=== PATIENT | female | born 1990 | race Caucasian/White ===

== ENCOUNTER → 2018-06-19 | Outpatient (CLI) | payer BC ==
[2018-06-19 14:45] VITALS: BP 161/77; PULSE 108; RESP 16; TEMP 98.9; BMI 61.8
[2018-06-19 16:20] LABS: HCT 41.5 % (34.0-46.0); HGB 12.7 gm/dL (11.4-16.0); MCH 25.7 pg (25.0-35.0); MCHC 30.5 g/dL (31.0-37.0); MCV 84.1 fL (80.0-100.0); Mean Platelet Volume 6.2; Platelet Count 341 k/uL (150-450); RBC 4.94 m/uL (3.80-5.40); RDW 13.7 % (11.5-15.5); WBC 14.4 k/uL (3.8-10.6)
--- NOTE | 2018-06-19 16:20 | P.HPBAR ---
Bariatric H&P - History & Physicial H&P Date: 06/19/18 History & Physicial: Visit/CC: initial visit Patient initial contact: Initial weight: 173.726 kg Initial weight in pounds: 383.00 Height: 5 ft 6 in Initial BMI: 61.8 Last weight: Current weight: 173.726 kg Current weight in pounds: 383.00 Current BMI: 61.8 [place] body weight (based on NIH guidelines): 58.967 kg Excess body weight loss: 0.0% The patient is a 27 year-old F who presents for Bariatric Assessment. Patient presents today for sleeve gastrectomy presurgical consultation. Her BMI is 62. She has had lifetime problems obesity. The patient has had multiple attempts at weight loss or lifetime. She has been unsuccessful. She has complaints of foot knee and ankle pain due to obesity. She also has issues with snoring due to her super obesity. Past Medical History Past Medical History: No Reported History History of Any Multi-Drug Resistant Organisms: None Reported Past Surgical History: No Surgical Hx Reported Past Anesthesia/Blood Transfusion Reactions: No Reported Reaction Past Psychological History: No Psychological Hx Reported Smoking Status: Never smoker Past Alcohol Use History: None Reported Past Drug Use History: None Reported Surgical - Exam Vital Signs Temp Pulse Resp BP 98.9 F 108 H 16 161/77 06/19/18 14:42 06/19/18 14:42 06/19/18 14:42 06/19/18 14:42 - General well developed, well nourished, no distress - Eyes PERRL - ENT normal pinna - Neck no masses - Respiratory normal expansion - Cardiovascular Rhythm: regular - Abdomen Abdomen: soft, non tender Bariatric Assessment & Plan Plan: Super morbid obesity with BMI 62. Comorbidities, arthritis and probable sleep apnea. Patient will undergo sleeve gastrectomy once her insurance authorization is complete. She'll be scheduled for EGD. Bariatric Checklist Checklist: Plan: Checklist: EGD: 1. Hiatal hernia: 2. H. Pylori: HgbA1c: Vitamin D: Smoking: Never smoker Primary care physician referral: dr. Espinosa Psychiatry clearance: Cardiology clearance: Sleep study: Diet journal: VTE risk score: VTE risk level: Rehab needs at discharge:
[2018-06-20 00:55] LABS: Hemoglobin A1C 5.5 % (4.0-6.0)
[2018-06-20 03:43] LABS: Albumin 4.5 g/dL (3.80-4.90); Albumin/Globulin Ratio 1.67 (1.60-3.17); Anion Gap 10.3 mmol/L (4.00-12.00); Calcium 9.6 mg/dL (8.7-10.3); Carbon Dioxide 25.7 mmol/L (21.6-31.8); Globulin 2.7 g/dL (1.6-3.3); Potassium 4.3 mmol/L (3.5-5.5); Total Bilirubin 0.3 mg/dL (0.2-1.2); Total Protein 7.2 g/dL (6.2-8.2)
== END ==
LOC: BARWHC3 14:27
PROVIDERS: ATTEND Surgery
DX: Z48.815 Encounter for surgical aftercare following surgery on the digestive system (principal); E66.01 Morbid (severe) obesity due to excess calories; E55.9 Vitamin D deficiency, unspecified; Z68.44 Body mass index [BMI] 60.0-69.9, adult; Z98.84 Bariatric surgery status
CPT/HCPCS: 36415; 80053; 82306; 83036; 84425; 85027; 93005; 99211

== ENCOUNTER 2018-06-30 07:33 | Day surgery (SDC) | payer BC ==
[2018-06-28 12:48] VITALS: BMI 60.0
[~2018-06-30 07:33] MED LIST: LACTATED RINGERS 1,000 ML IV SCH; LIDOCAINE 1% 20 ML VIAL (10MG/ML) FOR IV START INTRADERMA PRN
[2018-06-30] MEDS ORDERED: LACTATED RINGERS 1,000 ML IV ONE (08:03)
[2018-06-30 08:04] VITALS: RESP 18; TEMP 98.3
[2018-06-30] MEDS ORDERED: LIDOCAINE 1% INJ 10MG/ML (20 ML MDV) ONE (09:16)
[2018-06-30] MEDS ORDERED: PROPOFOL 10 MG/ML 20 ML VIAL IV ONE (09:16)
--- NOTE | 2018-06-30 09:18 | P.GSHP ---
History of Present Illness H&P Date: 06/30/18 Chief Complaint: Morbid obesity, BMI 60 This is a 27-year-old female who presents today for EGD. Patient is undergoing workup for sleeve gastrectomy. Her BMI 60. She's had complaints of some dysphagia and GERD. Past Medical History Past Medical History: No Reported History History of Any Multi-Drug Resistant Organisms: None Reported Past Surgical History: No Surgical Hx Reported Past Anesthesia/Blood Transfusion Reactions: No Reported Reaction Smoking Status: Never smoker - Past Family History Mother Family Medical History: No Reported History Medications and Allergies Home Medications Medication Instructions Recorded Confirmed Type Ergocalciferol (Vitamin D2) 50,000 unit PO TUFR 06/28/18 06/28/18 History [Vitamin D2] Allergies Allergy/AdvReac Type Severity Reaction Status Date / Time No Known Allergies Allergy Verified 06/28/18 12:44 Surgical - Exam Vital Signs Temp Pulse Resp BP Pulse Ox 98.3 F 80 18 104/69 97 06/30/18 08:02 06/30/18 08:02 06/30/18 08:02 06/30/18 08:02 06/30/18 08:02 BMI 60 - General well developed, well nourished, no distress - Eyes PERRL - ENT normal pinna - Neck no masses - Respiratory normal expansion - Cardiovascular Rhythm: regular - Abdomen Abdomen: soft, non tender
--- NOTE | 2018-06-30 09:25 | P.OP ---
Date of Procedure: 06/30/18 Preoperative Diagnosis: Morbid obesity, BMI 68 GERD Postoperative Diagnosis: Morbid obesity, BMI 60 Mild antral gastritis Procedure(s) Performed: EGD Anesthesia: MAC Surgeon: Patric Newby Pathology: other (Antrum) Condition: stable Disposition: PACU Description of Procedure: The patient's placed on the endoscopy table in the lateral position. She received IV sedation. The gastroscope placed oropharynx passed in the esophagus and into the stomach. Scope was then placed through the pylorus. The first and second portion of the duodenum appeared normal. Scope then brought back the antrum and this appeared mildly inflamed. A biopsies performed. The scope was then retroflexed and the remainder some appeared normal. There is no evidence of a hiatal hernia. The GE junction was at 40 cm. The distal esophagus appeared normal. The proximal esophagus appeared normal. The scope was withdra wn for patient.
[2018-06-30 09:45] VITALS: BP 135/77; PULSE 68
== END 2018-06-30 10:03 | disposition home or self-care (01) ==
LOC: ORWHC2ENDO 07:33
PROVIDERS: ATTEND Surgery
DX: K29.50 Unspecified chronic gastritis without bleeding (principal); K21.9 Gastro-esophageal reflux disease without esophagitis; R13.10 Dysphagia, unspecified; E66.01 Morbid (severe) obesity due to excess calories; Z01.818 Encounter for other preprocedural examination; Z68.44 Body mass index [BMI] 60.0-69.9, adult
CPT/HCPCS: 81025; 88305; 84703; 43239; J2001; J2704

== ENCOUNTER → 2018-07-31 | Outpatient (CLI) | payer BC ==
[2018-07-31 16:14] VITALS: BP 169/96; PULSE 72; RESP 16; TEMP 99; BMI 61.6
--- NOTE | 2018-08-01 09:47 | P.HPBAR ---
Bariatric H&P - History & Physicial H&P Date: 07/31/18 History & Physicial: Visit/CC: working on criteria Patient initial contact: Initial weight: 173.726 kg Initial weight in pounds: 383.00 Height: 5 ft 6 in Initial BMI: 61.8 Last weight: Current weight: 173.272 kg Current weight in pounds: 382.00 Current BMI: 61.6 [place] body weight (based on NIH guidelines): 58.967 kg Excess body weight loss: 0.3% The patient is a 28 year-old F who presents for Bariatric Assessment. Patient resents today for presurgical consultation. She is currently working on her insurance authorization. She is morbidly obese with a BMI of 62. Past Medical History Past Medical History: No Reported History History of Any Multi-Drug Resistant Organisms: None Reported Past Surgical History: No Surgical Hx Reported Past Anesthesia/Blood Transfusion Reactions: No Reported Reaction Past Psychological History: No Psychological Hx Reported Smoking Status: Never smoker Past Alcohol Use History: None Reported Past Drug Use History: None Reported - Past Family History Mother Family Medical History: No Reported History Surgical - Exam Vital Signs Temp Pulse Resp BP 99 F 72 16 169/96 07/31/18 16:11 07/31/18 16:11 07/31/18 16:11 07/31/18 16:11 - General well developed, well nourished, no distress - Eyes PERRL - ENT normal pinna - Neck no masses - Respiratory normal expansion - Abdomen Abdomen: soft, non tender Bariatric Assessment & Plan Plan: RBC, BMI 62. Patient will undergo sleeve gastrectomy once her insurance authorization is complete. We went over the risks and benefits of sleeve gastrectomy. We discussed the possibility of gastric staple line disruption, bleeding scarring. Patient has a good understanding of the sleeve gastrectomy. Bariatric Checklist Checklist: Plan: Checklist: EGD: 1. Hiatal hernia: 2. H. Pylori: HgbA1c: Vitamin D: Smoking: Never smoker Primary care physician referral: dr. Espinosa Psychiatry clearance: Cardiology clearance: Sleep study: Diet journal: VTE risk score: VTE risk level: Rehab needs at discharge:
== END | disposition home or self-care (01) ==
LOC: BARWHC3 14:57
PROVIDERS: ATTEND Surgery
DX: E66.01 Morbid (severe) obesity due to excess calories (principal); Z68.44 Body mass index [BMI] 60.0-69.9, adult
CPT/HCPCS: 99211

== ENCOUNTER → 2018-08-21 | Outpatient (CLI) | payer BC ==
[2018-08-21 14:10] VITALS: BMI 63.3
== END ==
LOC: BARWHC3 08:48
PROVIDERS: ATTEND Surgery
DX: E66.01 Morbid (severe) obesity due to excess calories (principal); Z68.44 Body mass index [BMI] 60.0-69.9, adult
CPT/HCPCS: 97804

== ENCOUNTER → 2018-09-11 | Outpatient (CLI) | payer BC ==
[2018-09-11 15:49] LABS: Basophils % (A) 0 %; Eosinophils # (A) 0.2 k/uL (0-0.7); Eosinophils % (A) 1 %; HCT 39.9 % (34.0-46.0); HGB 12.5 gm/dL (11.4-16.0); Lymphocytes # (A) 2.6 k/uL (1.0-4.8); Lymphocytes % (A) 20 %; MCH 25.7 pg (25.0-35.0); MCHC 31.4 g/dL (31.0-37.0); Mean Platelet Volume 6.7; Monocytes # (A) 0.7 k/uL (0-1.0); Monocytes % (A) 5 %; Neutrophils # (A) 9.6 k/uL (1.3-7.7); Neutrophils % (A) 72 %; Platelet Count 344 k/uL (150-450); RBC 4.87 m/uL (3.80-5.40); RDW 13.8 % (11.5-15.5); WBC 13.3 k/uL (3.8-10.6)
[2018-09-11 15:51] LABS: Prothrombin Time 10.7 sec (9.0-12.0)
[2018-09-11 15:54] LABS: ALT 24 U/L (9-52); AST 34 U/L (14-36); African American GFR (CKD) >90 (>60 ml/min/1.73 sqM); Albumin 4.5 g/dL (3.5-5.0); Alkaline Phosphatase 73 U/L (38-126); Anion Gap 11 mmol/L; Blood Urea Nitrogen 12 mg/dL (7-17); Calcium 9.5 mg/dL (8.4-10.2); Carbon Dioxide 22 mmol/L (22-30); Chloride 105 mmol/L (98-107); Glucose 79 mg/dL (74-99); Potassium 4.8 mmol/L (3.5-5.1); Sodium 138 mmol/L (137-145); Total Bilirubin 0.6 mg/dL (0.2-1.3); Total Protein 8.2 g/dL (6.3-8.2)
== END ==
LOC: LABPAT 15:01
PROVIDERS: ATTEND Surgery
DX: Z01.812 Encounter for preprocedural laboratory examination (principal)
CPT/HCPCS: 36415; 80053; 85025; 85610

== ENCOUNTER → 2018-09-11 | Outpatient (CLI) | payer BC ==
[2018-09-11 14:44] VITALS: BP 148/95; PULSE 100; RESP 18; TEMP 98.2; BMI 62.0
--- NOTE | 2018-09-18 14:28 | P.HPBAR ---
Bariatric H&P - History & Physicial H&P Date: 09/11/18 History & Physicial: Visit/CC: surgery consent Patient initial contact: Initial weight: 173.726 kg Initial weight in pounds: 383.00 Height: 5 ft 6 in Initial BMI: 61.8 Last weight: Current weight: 174.361 kg Current weight in pounds: 384.40 Current BMI: 62.0 [place] body weight (based on NIH guidelines): 58.967 kg Excess body weight loss: The patient is a 28 year-old F who presents for Bariatric Assessment. Patient presents today for presurgical consultation. She is apparent scheduled for laparoscopic sleeve gastrectomy next week. Her BMI is 62. The patient has a good understanding of the sleeve gastrectomy. We went over the risks and benefits of the procedure including conversion to the open procedure and injury to the stomach liver or spleen. She is also aware the risk of gastric stapling disruption or bleeding. Past Medical History Past Medical History: No Reported History History of Any Multi-Drug Resistant Organisms: None Reported Past Surgical History: No Surgical Hx Reported Past Anesthesia/Blood Transfusion Reactions: No Reported Reaction Past Psychological History: No Psychological Hx Reported Smoking Status: Never smoker Past Alcohol Use History: None Reported Past Drug Use History: None Reported - Past Family History Mother Family Medical History: No Reported History Surgical - Exam Vital Signs Temp Pulse Resp BP Pulse Ox 98.2 F 100 18 148/95 99 09/11/18 14:41 09/11/18 14:41 09/11/18 14:41 09/11/18 14:41 09/11/18 14:41 - General well developed, well nourished, no distress - Eyes PERRL - ENT normal pinna - Neck no masses - Respiratory normal expansion - Cardiovascular Rhythm: regular - Abdomen Abdomen: soft, non tender Bariatric Assessment & Plan Plan: Morbid obesity, BMI 62. Patient will undergo laparoscopic sleeve gastrectomy next week. All questions were answered in the office. Bariatric Checklist Checklist: Plan: Checklist: EGD: 1. Hiatal hernia: 2. H. Pylori: HgbA1c: Vitamin D: Smoking: Never smoker Primary care physician referral: dr. Espinosa Psychiatry clearance: Cardiology clearance: Sleep study: Diet journal: VTE risk score: VTE risk level: Rehab needs at discharge:
== END | disposition home or self-care (01) ==
LOC: BARWHC3 14:35
PROVIDERS: ATTEND Surgery
DX: E66.01 Morbid (severe) obesity due to excess calories (principal); Z68.44 Body mass index [BMI] 60.0-69.9, adult
CPT/HCPCS: 99211

== ENCOUNTER 2018-09-18 07:36 | Inpatient (IN) | payer BC ==
[~2018-09-18 07:36] MED LIST changes: +DEXAMETHASONE SOD PHOSPHATE 10 MG/ML 1 ML VIAL IV ONE; -LACTATED RINGERS 1,000 ML IV SCH; -LIDOCAINE 1% 20 ML VIAL (10MG/ML) FOR IV START INTRADERMA PRN; +MIDAZOLAM 2 MG/2 ML VIAL IV PRN; +ONDANSETRON 4 MG/2 ML VIAL IVP ONE; +SCOPOLAMINE 1.5MG/72HR PATCH TRANSDERM ONE
[2018-09-18] MEDS ORDERED: LACTATED RINGERS 1,000 ML IV ONE ×2 (08:15→10:17)
[2018-09-18] MEDS ORDERED: LIDOCAINE 1% 20 ML VIAL (10MG/ML) FOR IV START INTRADERMA ONE (08:16)
[2018-09-18] MEDS ORDERED: ceFAZolin IN SWFI 2 GM/20 ML SYRINGE IVP ONE (08:39)
[2018-09-18] MEDS ORDERED: ENOXAPARIN 40 MG/0.4 ML SYRINGE SQ STA (08:39)
[2018-09-18] MEDS ORDERED: MIDAZOLAM (PF) 2 MG/2 ML VIAL IVP ONE (08:46)
--- NOTE | 2018-09-18 08:46 | P.GSHP ---
History of Present Illness H&P Date: 09/18/18 Chief Complaint: Morbid obesity, BMI 61 This is a 28-year-old female who presents today for laparoscopic sleeve gastrectomy. Patient is morbidly obese. Her BMI 61. Patient is aware the risks surgery including conversion to the open procedure and injury to the stomach liver or spleen. She is also aware the risk of staple line disruption, bleeding or scarring. Past Medical History Past Medical History: No Reported History History of Any Multi-Drug Resistant Organisms: None Reported Past Surgical History: No Surgical Hx Reported Past Anesthesia/Blood Transfusion Reactions: No Reported Reaction, Family History of Problems w/ Anesthesia, Motion Sickness Additional Past Anesthesia/Blood Transfusion Reaction / Comment(s): entire family experiences ponv Smoking Status: Never smoker - Past Family History Mother Family Medical History: No Reported History Medications and Allergies Home Medications Medication Instructions Recorded Confirmed Type Ergocalciferol (Vitamin D2) 50,000 unit PO TUFR 06/28/18 09/14/18 History [Vitamin D2] Allergies Allergy/AdvReac Type Severity Reaction Status Date / Time No Known Allergies Allergy Verified 09/14/18 11:21 Surgical - Exam Vital Signs Temp Pulse Resp BP Pulse Ox 97.8 F 86 18 144/61 98 09/18/18 08:01 09/18/18 08:01 09/18/18 08:01 09/18/18 08:01 09/18/18 08:01 Morbid obesity, BMI of 61. - General well developed, well nourished, no distress - Eyes PERRL - ENT normal pinna - Neck no masses - Respiratory normal expansion - Cardiovascular Rhythm: regular - Abdomen Abdomen: soft, non tender Assessment and Plan Plan: Morbid obesity, BMI 61. We'll perform laparoscopic sleeve gastrectomy.
[2018-09-18] MEDS ORDERED: ROCURONIUM BROMIDE 10 MG/ML 10 ML VIAL IV ONE (09:03)
[2018-09-18] MEDS ORDERED: fentaNYL (PF) 50 MCG/ML 2 ML AMP ONE (09:03)
[2018-09-18] MEDS ORDERED: NEOSTIGMINE 1 MG/ML 10 ML VIAL ONE (09:03)
[2018-09-18] MEDS ORDERED: SUCCINYLCHOLINE CHLORIDE 100 MG/5 ML SYR IV ONE (09:03)
[2018-09-18] MEDS ORDERED: ONDANSETRON 4 MG/2 ML VIAL ONE (09:03)
[2018-09-18] MEDS ORDERED: PROPOFOL 10 MG/ML 20 ML VIAL IV ONE (09:03)
[2018-09-18] MEDS ORDERED: GLYCOPYRROLATE 0.2 MG/ML 2 ML VIAL ONE (09:03)
[2018-09-18] MEDS ORDERED: MIDAZOLAM 2 MG/2 ML VIAL ONE (09:03)
[2018-09-18] MEDS ORDERED: LIDOCAINE 1% INJ 10MG/ML (20 ML MDV) ONE (09:03)
[2018-09-18] MEDS ORDERED: BUPIVACAIN-EPI 0.5%-1:200,000 30 ML VIAL SQ ONE (09:46)
[2018-09-18] MEDS ORDERED: HYOSCYAMINE ORAL DROPS 1.875 MG/15 ML BOTTLE PO PRN (10:52)
[2018-09-18] MEDS ORDERED: ONDANSETRON 4 MG/2 ML VIAL IVP PRN (10:52)
[2018-09-18] MEDS ORDERED: diphenhydrAMINE 50 MG/ML 1 ML VIAL IVP PRN (10:52)
[2018-09-18] MEDS ORDERED: NALOXONE 0.4 MG/ML 1 ML VIAL IV PRN (10:52)
--- NOTE | 2018-09-18 10:52 | P.OP ---
Date of Procedure: 09/18/18 Preoperative Diagnosis: Morbid obesity, BMI 62 Postoperative Diagnosis: Morbid obesity, BMI 62 Procedure(s) Performed: Laparoscopic sleeve gastrectomy Anesthesia: NATHAN Surgeon: Patric Newby Estimated Blood Loss (ml): 10 Pathology: other (Gastric remnant) Condition: stable Disposition: PACU Description of Procedure: The patient was placed on the operating room table in the supine position. She received general anesthesia and then was placed in dorsal lithotomy position. Her abdomen was prepped and draped in sterile fashion. The skin incision sites were anesthetized 1% local Xylocaine. And then the skin was incised with an 11 blade in the left lateral position. Using a blade less trocar under direct visualization the peritoneal cavity was entered. The abdomen was insufflated and then a 5 mm laparoscope was placed into the peritoneal cavity. A 5 mm trocar was placed in the right epigastric, and right lateral position. A 15 mm trocar was placed in the supra-umbilical position and another 5 mm trocar was placed in the left lateral position. The left lateral lobe of the liver was retracted. The stomach was visualized. The greater curvature of the stomach was then dissected using the Harmonic scissors. The dissection occurred approximately 5 cm from the pylorus to the level of the left mendy. There was no hiatal hernia seen. At this point a 40-Norwegian bougie dilator was placed the oropharynx and passed into the esophagus and into the stomach by the MONOLOGIST. The sleeve gastrectomy was performed by using the powered echelon stapler with a seam guard buttress material. Sequential firings of the stapler were performed. The gastric remnant was then brought out through the 15 mm trocar site. The dilator was withdrawn. And a orogastric tube was replaced into the stomach. The stomach was insufflated with 200 mL of methylene blue normal saline. There was no evidence of extravasation. The abdomen was irrigated there is no bleeding seen. The Pérez-Michell device was used to close the 15 mm trocar with 0 Vicryl. Skin was closed with interrupted 3-0 Monocryl sutures once the trochars withdrawn. Dermabond dressing was applied. Patient was sent to recovery in stable condition.
[2018-09-18] MEDS ORDERED: PROMETHAZINE INJ 25 MG/ML 1 ML VIAL IVPB ONE (11:07)
[2018-09-18] MEDS: HYDROmorphone 0.5 MG/0.5 ML SYRINGE IVP PRN ×2 (11:16→11:23)
--- NOTE | 2018-09-18 12:23 | P.CONS ---
History of Present Illness - Reason for Consult Consult date: 09/18/18 Medical management Requesting physician: Patric Newby - Chief Complaint Status post sleeve gastrectomy - History of Present Illness This is a 28-year-old female, a patient of [facility]. She has a known past medical history of morbid obesity and vitamin D deficiency. She has a known BMI of 61. She underwent sleeve gastrectomy today for her morbid obesi ty with Dr. Newby. She tolerated the surgery well. locations reported. Patient is complaining of some nausea and epigastric abdominal discomfort. She's also complaining of some lower back pain. She denies any vomiting, chest pain or shortness of breath. She denies any difficulty urinating or any bowel movement changes. She's receiving Zofran and Protonix. Patient's blood pressures have also been elevated. Last blood pressure was 166/84. Review of Systems Please refer to HPI otherwise unremarkable Past Medical History Past Medical History: No Reported History History of Any Multi-Drug Resistant Organisms: None Reported Past Surgical History: No Surgical Hx Reported Past Anesthesia/Blood Transfusion Reactions: No Reported Reaction, Family History of Problems w/ Anesthesia, Motion Sickness Additional Past Anesthesia/Blood Transfusion Reaction / Comm: entire family experiences ponv Smoking Status: Never smoker - Past Family History Mother Family Medical History: No Reported History Medications and Allergies Home Medications Medication Instructions Recorded Confirmed Type Ergocalciferol (Vitamin D2) 50,000 unit PO TUFR 06/28/18 09/18/18 History [Vitamin D2] Allergies Allergy/AdvReac Type Severity Reaction Status Date / Time No Known Allergies Allergy Verified 09/18/18 11:52 Physical Exam Vitals: Vital Signs Temp Pulse Pulse Pulse Resp BP BP 09/18/18 11:54 98.1 F 87 18 166/84 09/18/18 11:35 76 16 158/72 09/18/18 11:20 69 18 157/73 09/18/18 11:05 83 18 159/72 09/18/18 10:50 87 18 166/73 09/18/18 10:35 97.8 F 98 20 170/75 09/18/18 08:01 97.8 F 86 18 144/61 Pulse Ox 09/18/18 11:54 98 09/18/18 11:35 100 09/18/18 11:20 100 06/17/19 11:05 100 09/18/18 10:50 100 09/18/18 10:35 100 09/18/18 08:01 98 Intake and Output 09/17/18 09/18/18 09/18/18 22:59 06:59 14:59 Intake Total 1600 Output Total 10 Balance 1590 Intake: IV 1600 Output: Estimated Blood Loss 10 Head normocephalic Neck supple Lungs clear to auscultation bilaterally no wheezing or crackles Heart regular rate and rhythm S1-S2, no rub or gallop Abdomen is soft nontender distended obese positive bowel sounds no hepatosplenomegaly Extremities no edema Neuro alert and orientated to 3 Assessment and Plan Assessment: 1. Morbid obesity status post sleeve gastrectomy. Patient scheduled for an upper GI. Diet pressure journal service. Continue with current pain management . Continue with the Zofran and Protonix for nausea. 2. Hypertension: Postoperative elevated blood pressures. We'll monitor. Possibly related to pain and nausea. If BP remains elevated will add a ntihypertensive medications. 3. History of vitamin D deficiency GI prophylaxis Protonix and DVT prophylaxis Lovenox Thank you for this consultation. We'll continue to follow along with you. Time with Patient: Greater than 30 (Greater than 50% of the total time spent in counseling and coordination of care.I performed an examination of the patient and discussed their management with the physician Network Strategist. I have reviewed the Physician Network Strategist's notes and agree with the documented findings and plan of care)
[2018-09-18] MEDS: ALBUTEROL NEBULIZED 2.5 MG/3 ML INHALATION SCH ×3 (12:30→20:45)
[2018-09-18] MEDS: LACTATED RINGERS 1,000 ML IV SCH (13:18)
[2018-09-18] MEDS: 0.9% NACL WITH KCL 20 MEQ/L 1,000 ML IV SCH ×2 (14:09→21:47)
[2018-09-18] MEDS: HYDROmorphone 1 MG/ML 1 ML SYRINGE IVP PRN ×4 (15:09→23:45)
[2018-09-18] MEDS ORDERED: ceFAZolin 3 GM in SODIUM CHLORIDE 0.9% 100 ML IVPB SCH (16:00)
[2018-09-18] MEDS: ENOXAPARIN 60 MG/0.6 ML SYRINGE SQ SCH (21:47)
[2018-09-19] MEDS: LACTATED RINGERS 1,000 ML IV SCH (06:07)
[2018-09-19] MEDS: 0.9% NACL WITH KCL 20 MEQ/L 1,000 ML IV SCH (06:07)
[2018-09-19] MEDS: ENOXAPARIN 60 MG/0.6 ML SYRINGE SQ SCH ×2 (06:53→20:38)
[2018-09-19] MEDS: HYDROmorphone 1 MG/ML 1 ML SYRINGE IVP PRN ×2 (06:53→10:32)
[2018-09-19] MEDS: PANTOPRAZOLE 40 MG/10 ML VIAL IV SCH (06:53)
[2018-09-19] MEDS ORDERED: 0.9% NACL WITH KCL 20 MEQ/L 1,000 ML IV SCH (08:00)
[2018-09-19] MEDS: ALBUTEROL NEBULIZED 2.5 MG/3 ML INHALATION SCH ×4 (08:23→19:36)
[2018-09-19 08:27] LABS: Basophils # (A) 0.1 k/uL (0-0.2); Basophils % (A) 1 %; Eosinophils % (A) 0 %; HCT 34.1 % (34.0-46.0); HGB 11.1 gm/dL (11.4-16.0); Lymphocytes # (A) 2.4 k/uL (1.0-4.8); Lymphocytes % (A) 17 %; MCH 26.2 pg (25.0-35.0); MCHC 32.4 g/dL (31.0-37.0); MCV 80.9 fL (80.0-100.0); Mean Platelet Volume 7.3; Monocytes # (A) 0.9 k/uL (0-1.0); Monocytes % (A) 6 %; Neutrophils # (A) 10.4 k/uL (1.3-7.7); Neutrophils % (A) 74 %; Platelet Count 287 k/uL (150-450); RBC 4.22 m/uL (3.80-5.40)
[2018-09-19 08:29] LABS: African American GFR (CKD) >90 (>60 ml/min/1.73 sqM); Anion Gap 8 mmol/L; Blood Urea Nitrogen 6 mg/dL (7-17); Calcium 8.4 mg/dL (8.4-10.2); Carbon Dioxide 21 mmol/L (22-30); Chloride 110 mmol/L (98-107); Magnesium 1.8 mg/dL (1.6-2.3); Phosphorus 2.6 mg/dL (2.5-4.5); Potassium 4.1 mmol/L (3.5-5.1); Sodium 139 mmol/L (137-145)
--- NOTE | 2018-09-19 10:38 | FL ---
EXAMINATION TYPE: FL UGI DATE OF EXAM: 09/19/2018 LIMITED UGI: CLINICAL HISTORY: Morbid Obesity, gastric sleeve surgery yesterday. TECHNIQUE: Limited esophagram is performed utilizing 20 oz of Isovue-370. A total of 30 seconds of f luoroscopic time was utilized during procedure. 42 spot images are saved. COMPARISON: None. FINDINGS: The patient swallowed contrast without difficulty or delay. Esophageal peristalsis and mo tility are within normal limits. There is satisfactory flow of contrast along the diaphragmatic hiat us into proximal stomach and mild delay in flow into gastric sleeve at proximal. There is mild delay in flow from distal anastomosis into pylorus and duodenal sweep. Patient remains asymptomatic. There is no evidence of contrast extravasation to suggest leak. IMPRESSION: No evidence of leak or significant obstruction status post recent gastric sleeve surgery yesterday.
--- NOTE | 2018-09-19 10:42 | P.PN ---
Subjective Progress Note Date: 09/19/18 This is a 28-year-old female, a patient of [facility]. She has a known past medical history of morbid obesity and vitamin D deficiency. She has a known BMI of 61. She underwent sleeve gastrectomy today for her morbid obesity with Dr. Newby. She tolerated the surgery well. locations reported. Patient is complaining of some nausea and epigastric abdominal discomfort. She's also complaining of some lower back pain. She denies any vomiting, chest pain or shortness of breath. She denies any difficulty urinating or any bowel movement changes. She's receiving Zofran and Protonix. Patient's blood pressures have also been elevated. Last blood pressure was 166/84. 09/19/2018 patient scheduled for upper GI this morning. Patient's blood pressures of still been elevated last blood pressure 160/72. Will give lisinopril 10 mg daily. White count 14 she did receive dexamethasone yesterday in the OR. Patient denies any chest pain or shortness of breath. Still having some abdominal discomfort and she complains of gas pressure and epigastric area. Denies any fever or chills or sweats. Denies any burning with urination. She is not passing any gas. Denies any headache. Does report that her systolic blood pressure usually runs in the 120s to 140s at her PCP office Objective - Vital Signs Vital signs: Vital Signs Temp 98.4 F 09/19/18 07:25 Pulse 70 09/19/18 08:31 Resp 16 09/19/18 07:25 BP 160/72 09/19/18 07:25 Pulse Ox 97 09/19/18 08:28 Intake & Output 09/18/18 09/19/18 09/19/18 18:59 06:59 18:59 Intake Total 1600 1875 Output Total 10 Balance 1590 1875 Intake: IV 1600 Intake, IV Titration 1875 Amount 0.9% NaCl with KCl 20 Meq 1875 /l 1,000 ml @ 150 mls/hr IV .[id number] WOLF Rx#: [id number] Output: Estimated Blood Loss 10 Other: Voiding Method Toilet Toilet # Voids 1 3 - Exam Head normocephalic Neck supple Lungs clear to auscultation bilaterally no wheezing or crackles Heart regular rate and rhythm S1-S2, no rub or gallop Abdomen is soft tender incision site nondistended positive bowel sounds no hepatosplenomegaly Extremities no edema Neuro alert and orientated to 3 - Labs CBC & Chem 7: 09/19/18 07:51 09/19/18 07:51 Labs: Abnormal Lab Results - Last 24 Hours (Table) 09/19/18 09/19/18 Range/Units 07:51 07:51 WBC 14.0 H (3.8-10.6) k/uL Hgb 11.1 L (11.4-16.0) gm/dL Neutrophils # 10.4 H (1.3-7.7) k/uL Chloride 110 H (98-107) mmol/L Carbon Dioxide 21 L (22-30) mmol/L BUN 6 L (7-17) mg/dL Assessment and Plan Assessment: 1. Morbid obesity status post sleeve gastrectomy. Patient scheduled for an upper GI. Diet pressure surgical service. Continue with current pain management. Continue with the Zofran and Protonix for nausea. 2. Hypertension: Blood pressures remain elevated. We'll add lisinopril 10 mg daily 3. History of vitamin D deficiency 4. Leukocytosis likely reactive to surgery she did receive dexamethasone. We'll monitor. GI prophylaxis Protonix and DVT prophylaxis Lovenox I performed an examination of the patient and discussed their management with the physician Shower Screen Installer. I have reviewed the Physician Shower Screen Installer's notes and agree with the documented findings and plan of care
[2018-09-19] MEDS: LISINOPRIL 10 MG TAB PO SCH (11:14)
[2018-09-19] MEDS: 1: MVI, ADULT NO.4 WITH VIT K 10 ML, THIAMINE 100 MG, FOLIC ACID 1 MG, POTASSIUM CHLORID IV SCH ×12 (11:14→23:27)
--- NOTE | 2018-09-19 13:03 | P.PN ---
Progress Note - Text Progress Note Date: 09/19/18 The patient is doing well. She has some complaints of incisional pain. Her esophagram performed this morning shows no evidence of leak or obstruction of her sleeve gastrectomy. On exam her vital signs are stable. Her abdomen soft. Incision sites are clean dry and intact. Patient will will be encouraged to increase her oral liquid intake. We dysphagia discharge home tomorrow.
[2018-09-19 14:08] VITALS: BMI 60.4
[2018-09-19] MEDS: HYDROcodone/APAP 15 ML SOLUTION PO PRN ×2 (15:32→20:38)
[2018-09-19 21:25] LABS: Amorphous Sediment,Urine Rare /hpf; Appearance,Urine Clear (Clear); Bilirubin,Urine Negative (Negative); Blood,Urine Small (Negative); Budding Yeast,Urine Moderate /hpf; Color,Urine Yellow; Glucose,Urine (UA) Negative (Negative); Ketones,Urine 1+ (Negative); Leukocyte Esterase,Urine Small (Negative); Mucus,Urine Occasional /hpf; Nitrite,Urine Negative (Negative); PH, Urine 5.5 (5.0-8.0); Protein,Urine Negative (Negative); RBC,Urine 3 /hpf (0-5); Specific Gravity,Urine 1.019 (1.001-1.035); Squamous Epithelial Cell,Urine 4 /hpf (0-4); Urobilinogen,Urine <2.0 mg/dL (<2.0)
[2018-09-20] MEDS: LACTATED RINGERS 1,000 ML IV SCH (06:41)
[2018-09-20 07:13] VITALS: RESP 14
[2018-09-20] MEDS: ALBUTEROL NEBULIZED 2.5 MG/3 ML INHALATION SCH ×2 (08:19→12:10)
[2018-09-20] MEDS: ENOXAPARIN 60 MG/0.6 ML SYRINGE SQ SCH (08:33)
[2018-09-20] MEDS: LISINOPRIL 10 MG TAB PO SCH (08:34)
[2018-09-20] MEDS: PANTOPRAZOLE 40 MG/10 ML VIAL IV SCH (08:34)
[2018-09-20] MEDS: 1: MVI, ADULT NO.4 WITH VIT K 10 ML, THIAMINE 100 MG, FOLIC ACID 1 MG, POTASSIUM CHLORID IV SCH ×6 (08:38)
[2018-09-20 09:31] LABS: Basophils % (A) 0 %; Eosinophils # (A) 0.1 k/uL (0-0.7); Eosinophils % (A) 1 %; HGB 11.3 gm/dL (11.4-16.0); Lymphocytes # (A) 2.3 k/uL (1.0-4.8); Lymphocytes % (A) 23 %; MCH 26.4 pg (25.0-35.0); MCHC 31.4 g/dL (31.0-37.0); MCV 84.2 fL (80.0-100.0); Mean Platelet Volume 7.2; Monocytes # (A) 0.6 k/uL (0-1.0); Monocytes % (A) 6 %; Neutrophils % (A) 69 %; Platelet Count 314 k/uL (150-450); RBC 4.28 m/uL (3.80-5.40); RDW 14.7 % (11.5-15.5); WBC 10.1 k/uL (3.8-10.6)
[2018-09-20 10:10] LABS: African American GFR (CKD) >90 (>60 ml/min/1.73 sqM); Anion Gap 9 mmol/L; Blood Urea Nitrogen 4 mg/dL (7-17); Calcium 8.6 mg/dL (8.4-10.2); Carbon Dioxide 22 mmol/L (22-30); Chloride 108 mmol/L (98-107); Glucose 79 mg/dL (74-99); Potassium 4.1 mmol/L (3.5-5.1); Sodium 139 mmol/L (137-145)
--- NOTE | 2018-09-20 10:21 | P.PN ---
Subjective Progress Note Date: 09/20/18 This is a 28-year-old female, a patient of [facility]. She has a known past medical history of morbid obesity and vitamin D deficiency. She has a known BMI of 61. She underwent sleeve gastrectomy today for her morbid obesity with Dr. Newby. She tolerated the surgery well. locations reported. Patient is complaining of some nausea and epigastric abdominal discomfort. She's also complaining of some lower back pain. She denies any vomiting, chest pain or shortness of breath. She denies any difficulty urinating or any bowel movement changes. She's receiving Zofran and Protonix. Patient's blood pressures have also been elevated. Last blood pressure was 166/84. 09/19/2018 patient scheduled for upper GI this morning. Patient's blood pressures of still been elevated last blood pressure 160/72. Will give lisinopril 10 mg daily. White count 14 she did receive dexamethasone yesterday in the OR. Patient denies any chest pain or shortness of breath. Still having some abdominal discomfort and she complains of gas pressure and epigastric area. Denies any fever or chills or sweats. Denies any burning with urination. She is not passing any gas. Denies any headache. Does report that her systolic blood pressure usually runs in the 120s to 140s at her PCP office On 09/20/2018 patient is alert and oriented 3 resting comfortably in bed. Upper GI series completed showing no evidence of leak or significant obstruction status post recent gastric sleeve surgery. Patient also having positive UA for urinary tract infection and knees. Patient will be discharged on Ceftin and Diflucan. Patient was advised to follow-up with PCP for further management of urinary tract infection. White blood cell has normalized. At this time patient denies any nausea or vomiting. Patient denies chest pain or shortness of breath. Patient denies any urinary burning or frequency. Objective - Vital Signs Vital signs: Vital Signs Temp 97.4 F L 09/20/18 07:00 Pulse 74 09/20/18 07:00 Resp 14 09/20/18 07:00 BP 148/84 09/20/18 07:00 Pulse Ox 100 09/20/18 07:00 Intake & Output 09/19/18 09/20/18 09/20/18 18:59 06:59 18:59 Intake Total 240 900 Output Total 450 Balance 240 450 Weight 175.087 kg Intake: Intake, IV Titration 900 Amount 0.9% NaCl with KCl 20 Meq 900 /l 1,000 ml @ 100 mls/hr IV .BY DURATION FOR[facility]LY [facility], [facility] Rx#: [id number] Oral 240 Output: Urine 450 Other: Voiding Method Toilet Toilet # Voids 3 - Exam Head normocephalic Neck supple Lungs clear to auscultation bilaterally no wheezing or crackles Heart regular rate and rhythm S1-S2, no rub or gallop Abdomen is soft tender incision site nondistended positive bowel sounds no hepatosplenomegaly Extremities no edema Neuro alert and orientated to 3 - Labs CBC & Chem 7: 09/20/18 08:56 09/20/18 08:56 Labs: Abnormal Lab Results - Last 24 Hours (Table) 09/19/18 09/20/18 09/20/18 Range/Units Unknown 08:56 08:56 Hgb 11.3 L (11.4-16.0) gm/dL Chloride 108 H (98-107) mmol/L BUN 4 L (7-17) mg/dL Urine Ketones 1+ H (Negative) Urine Blood Small H (Negative) Ur Leukocyte Esterase Small H (Negative) Urine WBC 8 H (0-5) /hpf Amorphous Sediment Rare H (None) /hpf Urine Mucus Occasional H (None) /hpf Urine Yeast (Budding) Moderate H (None) /hpf Microbiology - Last 24 Hours (Table) 09/19/18 21:30 Urine Culture - Preliminary Urine,Clean Catch Assessment and Plan Assessment: 1. Morbid obesity status post sleeve gastrectomy. Patient scheduled for an upper GI. Diet pressure surgical service. Continue with current pain management. Continue with the Zofran and Protonix for nausea. 2. Hypertension: Blood pressures remain elevated. We'll add lisinopril 10 mg daily. Blood pressure has improved. Patient to follow with PCP for further management. Patient will be discharged on lisinopril 10 mg daily 3. History of vitamin D deficiency 4. Urinary tract infection. Patient will be DC'd on Ceftin for one week. Patient to follow-up with PCP urine culture collected 5. Yeast infection. Patient will be DC'd on Diflucan for 3 days GI prophylaxis Protonix and DVT prophylaxis Lovenox Anticipate discharge per surgical team. I performed an examination of the patient and discussed their management with the Nurse Practitioner. I have reviewed the Nurse Practitioner's notes and agree with the documented findings and plan of care
--- NOTE | 2018-09-20 10:27 | P.DS ---
Providers Date of admission: 09/18/18 07:36 Expected date of discharge: 09/20/18 Attending physician: Patric Newby Consults: 09/18/18 10:52 Consult Physician Routine Consulting Provider: Micah Bunch Consult Reason/Comments: Medical management Do you want consulting provider notified?: Yes Primary care physician: Hollie Espinosa Hospital Course: This a 28-year-old female who underwent laparoscopic sleeve gastrectomy. Patient will postoperative. Please see hospital chart for details. Procedures: Laparoscopic sleeve gastrectomy Patient Condition at Discharge: Good Plan - Discharge Summary Discharge Rx Participant: Yes New Discharge Prescriptions: New Cefuroxime Axetil [Ceftin] 500 mg PO BID 7 Days #14 tab Fluconazole [Diflucan] 200 mg PO DAILY 3 Days #3 tab Lisinopril [Zestril] 10 mg PO DAILY 30 Days #30 tab Sucralfate [Carafate] 1 gm PO BID #60 tab Docusate [Colace] 100 mg PO BID #20 capsule HYDROcodone/APAP 5-325MG [[place] 5-325] 1 tab PO Q6HR PRN #10 tab PRN Reason: Pain Omeprazole 40 mg PO DAILY #60 capsule. Ondansetron HCl [Zofran] 4 mg PO Q6HR PRN #30 tablet PRN Reason: Pain No Action Ergocalciferol (Vitamin D2) [Vitamin D2] 50,000 unit PO TUFR Discharge Medication List Ergocalciferol (Vitamin D2) [Vitamin D2] 50,000 unit PO TUFR 06/28/18 [History] Cefuroxime Axetil [Ceftin] 500 mg PO BID 7 Days #14 tab 09/20/18 [Rx] Docusate [Colace] 100 mg PO BID #20 capsule 09/20/18 [Rx] Fluconazole [Diflucan] 200 mg PO DAILY 3 Days #3 tab 09/20/18 [Rx] HYDROcodone/APAP 5-325MG [[place] 5-325] 1 tab PO Q6HR PRN #10 tab 09/20/18 [Rx] Lisinopril [Zestril] 10 mg PO DAILY 30 Days #30 tab 09/20/18 [Rx] Omeprazole 40 mg PO DAILY #60 capsule. 09/20/18 [Rx] Ondansetron HCl [Zofran] 4 mg PO Q6HR PRN #30 tablet 09/20/18 [Rx] Sucralfate [Carafate] 1 gm PO BID #60 tab 09/20/18 [Rx] Patient Instructions/Handouts: *Surgery [facility] - Scopalamine Patch Instructions
[2018-09-20 14:11] VITALS: BP 137/86; PULSE 73; TEMP 98.7
[2018-09-20] MEDS: HYDROcodone/APAP 15 ML SOLUTION PO PRN (14:50)
--- NOTE | 2018-09-20 16:36 | CDI ---
Documentation Clarification Form Date: 09/20/2018 4:08:46 PM From: Carola Hernandez RN, CCDS Admit Date: 09/18/2018 7:36:00 AM Patient Name: Renuka Uribe Visit Number: [id number] Discharge Date: 09/20/2018 3:00:00 PM ATTENTION: The Clinical Documentation Specialists (CDI) and [facility] Coding Staff appreciate your assistance in clarifying documentation. Please respond to the clarification below the line at the bottom and electronically sign. The CDI & [facility] Coding staff will review the response and follow-up if needed. Please note: Queries are made part of the Legal Health Record. If you have any questions, please contact the author of this message via ITS. Dr. Micah Bunch UTI was documented in the progress note on 09/20/18 and further clarification is needed. History/Risk Factors: Morbid obesity, Vitamin D deficiency Clinical Indicators: 28-year-old female present for elective sleeve gastrectomy for her morbid obesity. she tolerated the surgery well. She was complaining of some lower back pain. She denies any difficulty urinating, denies any urinary burning or frequency. I/O flow sheet documents voiding as toilet. Post procedure WBC 14.4 ( received dexamethasone in the OR) 09/19/18 UA clean catch: Ur Leukocyte Esterase -small, Urine Yeast (Budding) Moderate) Urine culture -Pending Vital Signs: 160/72 73 16 98.4 98 % RA Treatment Antibiotics Ceftin Po BID x7 days Diflucan PO Follow up with PCP Please document the condition that these clinical indicators signify, whether Present on Admission, and cause if known: UTI POA UTI NOT POA UTI Contaminated specimen Other, please specify Unable to determine (Last Revision: January 2017) UTI POA MTDD
== END 2018-09-20 15:00 | disposition home or self-care (01) | DRG 620 ==
LOC: 2ORMAIN 07:36 → 4SSUR 10:35
PROVIDERS: ADMIT Surgery; ATTEND Surgery
PROC: 0DB64Z3 Excision of Stomach, Percutaneous Endoscopic Approach, Vertical (ICD-10-PCS; principal; 2018-09-18 08:45)
DX: E66.01 Morbid (severe) obesity due to excess calories (principal); B37.49 Other urogenital candidiasis; Z68.44 Body mass index [BMI] 60.0-69.9, adult; I10 Essential (primary) hypertension; D72.829 Elevated white blood cell count, unspecified; E55.9 Vitamin D deficiency, unspecified; Z79.899 Other long term (current) drug therapy
CPT/HCPCS: 74240; 80048; 80051; 81001; 81025; 82310; 82565; 83735; 84100; 84520; 85025; 87086; 88307; 94640; 94760; 94762

== ENCOUNTER → 2018-10-02 | Outpatient (CLI) | payer BC ==
[2018-10-02 14:40] VITALS: BP 137/83; PULSE 93; TEMP 99.3; BMI 58.3
== END | disposition home or self-care (01) ==
LOC: BARWHC3 13:59
PROVIDERS: ATTEND Surgery
DX: E66.01 Morbid (severe) obesity due to excess calories (principal); Z68.43 Body mass index [BMI] 50.0-59.9, adult
CPT/HCPCS: 97803; 99211

== ENCOUNTER → 2018-11-06 | Outpatient (CLI) | payer BC ==
[2018-11-06 15:04] VITALS: BP 153/73; PULSE 69; RESP 16; TEMP 99.5; BMI 56.0
--- NOTE | 2018-11-06 16:32 | P.HPBAR ---
Bariatric H&P - History & Physicial H&P Date: 11/06/18 History & Physicial: Visit/CC: sleeve follow-up October Patient initial contact: Initial weight: 173.726 kg Initial weight in pounds: 383.00 Height: 5 ft 6 in Initial BMI: 61.8 Last weight: Current weight: 157.538 kg Current weight in pounds: 347.31 Current BMI: 56.0 [place] body weight (based on NIH guidelines): 58.967 kg Excess body weight loss: 14.1% The patient is a 28 year-old F who presents for Bariatric Assessment. Patient presents today for sleeve gastrectomy follow-up. She's had some mild GERD. She's had excellent weight loss. She has lost approximately 37 pounds since surgery. Past Medical History Past Medical History: No Reported History History of Any Multi-Drug Resistant Organisms: None Reported Past Surgical History: No Surgical Hx Reported, Bariatric Surgery Additional Past Surgical History / Comment(s): Gastric Sleeve 09/18/18 Past Anesthesia/Blood Transfusion Reactions: No Reported Reaction, Family History of Problems w/ Anesthesia, Motion Sickness Additional Past Anesthesia/Blood Transfusion Reaction / Comm: entire family experiences ponv Past Psychological History: No Psychological Hx Reported Smoking Status: Never smoker Past Alcohol Use History: None Reported Past Drug Use History: None Reported - Past Family History Mother Family Medical History: No Reported History Surgical - Exam Vital Signs Temp Pulse Resp BP 99.5 F 69 16 153/73 11/06/18 15:02 11/06/18 15:02 11/06/18 15:02 11/06/18 15:02 - General well developed, well nourished, no distress - Eyes PERRL - ENT normal pinna - Neck no masses - Respiratory normal expansion, normal respiratory effort - Abdomen Abdomen: soft, non tender Bariatric Assessment & Plan Plan: Status post sleeve gastrectomy. Patient is doing quite well. Her GERD is minimal will be observed. She'll follow-up in 4 weeks. Bariatric Checklist Checklist: Plan: Checklist: EGD: 1. Hiatal hernia: 2. H. Pylori: HgbA1c: Vitamin D: Smoking: Never smoker Primary care physician referral: dr. Espinosa Psychiatry clearance: Cardiology clearance: Sleep study: Diet journal: VTE risk score: VTE risk level: Rehab needs at discharge:
== END | disposition home or self-care (01) ==
LOC: BARWHC3 14:53
PROVIDERS: ATTEND Surgery
DX: Z48.815 Encounter for surgical aftercare following surgery on the digestive system (principal); E66.01 Morbid (severe) obesity due to excess calories; K21.9 Gastro-esophageal reflux disease without esophagitis; Z68.43 Body mass index [BMI] 50.0-59.9, adult; Z90.3 Acquired absence of stomach [part of]
CPT/HCPCS: 97803; 99211

== ENCOUNTER → 2018-12-11 | Outpatient (CLI) | payer BC ==
[2018-12-11 16:11] VITALS: BP 139/83; PULSE 82; TEMP 98.2; BMI 53.1
--- NOTE | 2018-12-11 16:37 | P.HPBAR ---
Bariatric H&P - History & Physicial H&P Date: 12/11/18 History & Physicial: Visit/CC: three month follow up Patient initial contact: Initial weight: 173.726 kg Initial weight in pounds: 383.00 Height: 5 ft 6 in Initial BMI: 61.8 Last weight: Current weight: 149.232 kg Current weight in pounds: 329.00 Current BMI: 53.1 [place] body weight (based on NIH guidelines): 58.967 kg Excess body weight loss: 21.3% The patient is a 28 year-old F who presents for Bariatric Assessment. Patient presents today for sleeve gastrectomy.. The quite well. She's had minimal GERD. Past Medical History Past Medical History: No Reported History History of Any Multi-Drug Resistant Organisms: None Reported Past Surgical History: No Surgical Hx Reported, Bariatric Surgery Additional Past Surgical History / Comment(s): Gastric Sleeve 09/18/18 Past Anesthesia/Blood Transfusion Reactions: No Reported Reaction, Family History of Problems w/ Anesthesia, Motion Sickness Additional Past Anesthesia/Blood Transfusion Reaction / Comm: entire family experiences ponv Past Psychological History: No Psychological Hx Reported Smoking Status: Never smoker Past Alcohol Use History: None Reported Past Drug Use History: None Reported - Past Family History Mother Family Medical History: No Reported History Surgical - Exam Vital Signs Temp Pulse BP 98.2 F 82 139/83 12/11/18 15:59 12/11/18 15:59 12/11/18 15:59 - General well developed, well nourished, no distress - Eyes PERRL - Abdomen Abdomen: soft, non tender Bariatric Assessment & Plan Plan: Status post sleeve gastrectomy. Patient is doing quite well. Her GERD is minimal will be observed. She'll follow-up in 4 weeks. Bariatric Checklist Checklist: Plan: Checklist: EGD: 1. Hiatal hernia: 2. H. Pylori: HgbA1c: Vitamin D: Smoking: Never smoker Primary care physician referral: dr. Espinosa Psychiatry clearance: Cardiology clearance: Sleep study: Diet journal: VTE risk score: VTE risk level: Rehab needs at discharge:
== END | disposition home or self-care (01) ==
LOC: BARWHC3 14:58
PROVIDERS: ATTEND Surgery
DX: Z48.815 Encounter for surgical aftercare following surgery on the digestive system (principal); E66.01 Morbid (severe) obesity due to excess calories; K21.9 Gastro-esophageal reflux disease without esophagitis; Z68.43 Body mass index [BMI] 50.0-59.9, adult; Z98.84 Bariatric surgery status
CPT/HCPCS: 97803; 99211

== ENCOUNTER → 2018-12-18 | Outpatient (CLI) | payer BC ==
[2018-12-18 14:41] LABS: HCT 34.7 % (34.0-46.0); HGB 11.5 gm/dL (11.4-16.0); MCH 26.9 pg (25.0-35.0); MCHC 33.1 g/dL (31.0-37.0); MCV 81.4 fL (80.0-100.0); Mean Platelet Volume 7.2; Platelet Count 273 k/uL (150-450); RBC 4.26 m/uL (3.80-5.40); RDW 14.3 % (11.5-15.5); WBC 10.3 k/uL (3.8-10.6)
[2018-12-18 19:24] LABS: African American GFR (CKD) 137.6 (60.0-200.0); Albumin 4.4 g/dL (3.80-4.90); Albumin/Globulin Ratio 1.83 (1.60-3.17); Anion Gap 10.3 mmol/L (4.00-12.00); Calcium 9.3 mg/dL (8.7-10.3); Carbon Dioxide 23.7 mmol/L (21.6-31.8); Globulin 2.4 g/dL (1.6-3.3); Potassium 3.9 mmol/L (3.5-5.5); Total Bilirubin 0.2 mg/dL (0.2-1.2); Total Protein 6.8 g/dL (6.2-8.2)
[2018-12-18 19:27] LABS: Iron Saturation 5.54 (12.00-45.00)
[2018-12-18 20:42] LABS: Hemoglobin A1C 5.3 % (4.0-6.0)
[2018-12-20 06:26] LABS: Vitamin A 22 ug/dL (38-106)
== END | disposition home or self-care (01) ==
LOC: LABWHC1 14:19
PROVIDERS: ATTEND Surgery
DX: E66.01 Morbid (severe) obesity due to excess calories (principal); D50.8 Other iron deficiency anemias
CPT/HCPCS: 36415; 80053; 82607; 82728; 83036; 83540; 83550; 83970; 84134; 84425; 84590; 85027

== ENCOUNTER → 2019-01-08 | Outpatient (CLI) | payer BC ==
[2019-01-08 14:58] VITALS: BP 134/67; PULSE 59; RESP 16; TEMP 98.9; BMI 50.8
--- NOTE | 2019-01-08 17:02 | P.HPBAR ---
Bariatric H&P - History & Physicial H&P Date: 01/08/19 History & Physicial: Visit/CC: F/U Patient initial contact: Initial weight: 173.726 kg Initial weight in pounds: 383.00 Height: 5 ft 6 in Initial BMI: 61.8 Last weight: Current weight: 142.882 kg Current weight in pounds: 315.00 Current BMI: 50.8 [place] body weight (based on NIH guidelines): 58.967 kg Excess body weight loss: 26.8% The patient is a 28 year-old F who presents for Bariatric Assessment. Patient presents today for sleeve gastrectomy follow-up. She is an excellent weight loss. She's had some mild GERD. Past Medical History Past Medical History: No Reported History History of Any Multi-Drug Resistant Organisms: None Reported Past Surgical History: No Surgical Hx Reported, Bariatric Surgery Additional Past Surgical History / Comment(s): Gastric Sleeve 09/18/18 Past Anesthesia/Blood Transfusion Reactions: No Reported Reaction, Family History of Problems w/ Anesthesia, Motion Sickness Additional Past Anesthesia/Blood Transfusion Reaction / Comm: entire family experiences ponv Past Psychological History: No Psychological Hx Reported Smoking Status: Never smoker Past Alcohol Use History: None Reported Past Drug Use History: None Reported - Past Family History Mother Family Medical History: No Reported History Surgical - Exam Vital Signs Temp Pulse Resp BP 98.9 F 59 L 16 134/67 01/08/19 14:56 01/08/19 14:56 01/08/19 14:56 01/08/19 14:56 - General well developed, well nourished, no distress - Eyes PERRL - ENT normal pinna - Neck no masses - Cardiovascular Rhythm: regular - Abdomen Abdomen: soft, non tender Bariatric Assessment & Plan Plan: The patient is doing excellent. She is an excellent weight loss. Her GERD is minimal will be observed. She'll follow-up in 4 weeks. Bariatric Checklist Checklist: Plan: Checklist: EGD: 1. Hiatal hernia: 2. H. Pylori: HgbA1c: Vitamin D: Smoking: Never smoker Primary care physician referral: dr. Espinosa Psychiatry clearance: Cardiology clearance: Sleep study: Diet journal: VTE risk score: VTE risk level: Rehab needs at discharge:
== END ==
LOC: BARWHC3 14:12
PROVIDERS: ATTEND Surgery
DX: Z48.815 Encounter for surgical aftercare following surgery on the digestive system (principal); K21.9 Gastro-esophageal reflux disease without esophagitis; Z98.84 Bariatric surgery status
CPT/HCPCS: 99211

== ENCOUNTER → 2019-03-12 | Outpatient (CLI) | payer BC ==
[2019-03-12 14:37] VITALS: BP 127/82; PULSE 70; RESP 16; TEMP 99.1; BMI 47.0
--- NOTE | 2019-03-12 18:25 | P.HPBAR ---
Bariatric H&P - History & Physicial H&P Date: 03/12/19 History & Physicial: Visit/CC: post sleeve Patient initial contact: Initial weight: 173.726 kg Initial weight in pounds: 383.00 Height: 5 ft 6 in Initial BMI: 61.8 Last weight: Current weight: 132.165 kg Current weight in pounds: 291.38 Current BMI: 47.0 [place] body weight (based on NIH guidelines): 58.967 kg Excess body weight loss: 36.2% The patient is a 28 year-old F who presents for Bariatric Assessment. Patient presents today for sleeve gastrectomy follow-up. She has done extremely well. She's had an excellent weight loss. Mild GERD. Past Medical History Past Medical History: No Reported History History of Any Multi-Drug Resistant Organisms: None Reported Past Surgical History: No Surgical Hx Reported, Bariatric Surgery Additional Past Surgical History / Comment(s): Gastric Sleeve 09/18/18 Past Anesthesia/Blood Transfusion Reactions: No Reported Reaction, Family Histo ry of Problems w/ Anesthesia, Motion Sickness Additional Past Anesthesia/Blood Transfusion Reaction / Comm: entire family experiences ponv Past Psychological History: No Psychological Hx Reported Smoking Status: Never smoker Past Alcohol Use History: None Reported Past Drug Use History: None Reported - Past Family History Mother Family Medical History: No Reported History Surgical - Exam Vital Signs Temp Pulse Resp BP 99.1 F 70 16 127/82 03/12/19 14:35 03/12/19 14:35 03/12/19 14:35 03/12/19 14:35 - General well developed, well nourished, no distress - Eyes PERRL - ENT normal pinna - Neck no masses - Respiratory normal expansion - Cardiovascular Rhythm: regular - Abdomen Abdomen: soft, non tender Bariatric Assessment & Plan Plan: Status post sleeve gastrectomy. Patient's has some minimal GERD. This will be observed. She'll follow-up in 4 weeks. Bariatric Checklist Checklist: Plan: Checklist: EGD: 1. Hiatal hernia: 2. H. Pylori: HgbA1c: Vitamin D: Smoking: Never smoker Primary care physician referral: dr. Espinosa Psychiatry clearance: Cardiology clearance: Sleep study: Diet journal: VTE risk score: VTE risk level: Rehab needs at discharge:
== END | disposition home or self-care (01) ==
LOC: BARWHC3 13:57
PROVIDERS: ATTEND Surgery
DX: Z48.815 Encounter for surgical aftercare following surgery on the digestive system (principal); K21.9 Gastro-esophageal reflux disease without esophagitis; E66.01 Morbid (severe) obesity due to excess calories; Z68.42 Body mass index [BMI] 45.0-49.9, adult
CPT/HCPCS: 97803; 99211

== ENCOUNTER → 2019-12-07 | Outpatient (CLI) | payer BC ==
[2019-12-07 12:11] LABS: HGB 11.3 gm/dL (11.4-16.0); MCH 26.4 pg (25.0-35.0); MCHC 31.3 g/dL (31.0-37.0); MCV 84.4 fL (80.0-100.0); Mean Platelet Volume 7.4; Platelet Count 268 k/uL (150-450); RBC 4.27 m/uL (3.80-5.40); WBC 8.3 k/uL (3.8-10.6)
[2019-12-07 17:56] LABS: % Iron Saturation 9.66 (12.00-45.00); African American GFR (CKD) 116.3 (60.0-200.0); Albumin 4.2 g/dL (3.80-4.90); Albumin/Globulin Ratio 1.62 (1.60-3.17); Anion Gap 6.4 mmol/L (4.00-12.00); BUN/Creat Ratio 16.25 Ratio (12.00-20.00); Calcium 9.3 mg/dL (8.7-10.3); Carbon Dioxide 27.6 mmol/L (21.6-31.8); Chol/HDL Ratio 2.71; Globulin 2.6 g/dL (1.6-3.3); LDL Cholesterol,Calculated 84.4 mg/dL (0.0-131.0); Non-African American GFR(CKD) 100.3 (60.0-200.0); Potassium 4.2 mmol/L (3.5-5.5); Total Bilirubin 0.5 mg/dL (0.2-1.2); Total Protein 6.8 g/dL (6.2-8.2); VLDL Calculation 11.6 mg/dL (5.00-40.00)
[2019-12-07 18:23] LABS: Ferritin 9.9 ng/mL (10.0-291.0)
== END | disposition home or self-care (01) ==
LOC: LABWHC1 10:18
PROVIDERS: ATTEND Family Medicine
DX: K91.2 Postsurgical malabsorption, not elsewhere classified (principal); E61.1 Iron deficiency
CPT/HCPCS: 36415; 80053; 80061; 82728; 83540; 83550; 84443; 85027

== ENCOUNTER 2020-10-10 20:19 | Outpatient (CLI) | payer BC ==
[2020-10-10 21:30] VITALS: BP 119/69; PULSE 60; RESP 16; TEMP 97.4
--- NOTE | 2020-10-13 08:30 | P.MSEPDOC ---
Presenting Problems - Arrival Data Date of Arrival on Unit: 10/10/20 Time of Arrival on Unit: 20:19 Mode of Transport: Wheelchair - Complaint OB-Reason for Admission/Chief Complaint: Decreased Movement Comment: pt. states decrease movement, last time she felt baby move was an hour. ago, patient states she fall at 3:30pm, tripped over her feet on the grass and fell. forward on the side walk caught on self on left and and left side. patient states she. felt baby 3 times since then, patient initally right after fall went inside and put feet. up, states usually when she puts feet up baby is active and he wasnt for 45min. Medical History - Information : 1 Para: 0 Term: 0 : 0 Abortions: Spontaneous or Elective: 0 Number of Living Children: 0 - Gestational Age Gestational Age by RADHA (wks/days): 35 Weeks and 6 Days Review of Systems - Review of Systems Constitutional: No problems Breast: No problems ENT: No problems Cardiovascular: No problems Respiratory: No problems Gastrointestinal: No problems Genitourinary: No problems Musculoskeletal: No problems Neurological: No problems Skin: No problems Vital Signs - Temperature Temperature: 97.4 F Temperature Source: Temporal Artery Scan - Pulse Pulse Oximetery Pulse Rate: 60 Pulse Assessment Method: Pulse Oximetry - Respirations Respiratory Rate: 16 O2 Sat by Pulse Oximetry: 98 - Blood Pressure Right Arm Blood Pressure: 119/69 Blood Pressure Mean: 85 Blood Pressure Source: Automatic Cuff Medical Screen Scoring - Uterine Contractions Frequency From (mins): 2 Frequency To (mins): 7 Duration From (seconds): 30 Duration To (seconds): 60 Resting: Soft to palpation - Assessment - Baby A Baseline FHR: 135 Heart Rate - NICHD Category: Category I (Normal) NST: Reactive Maternal Triage Index - Maternal Triage Index Presenting for scheduled procedure w/no complaint: No - Stat/Priority 1 Stat Priority 1: Yes Provider Notified: Yue De La Cruz Provider Notified Time: 20:50 Criteria Met for Priority 1: decrease movement after a fall at 3:30pm today Disposition - Disposition OB Disposition: Physician follow up in office, Discharge to home Discharge Date: 10/10/20 Discharge Time: 21:29 I agree with the RN Medical Screening Exam: Yes Case reviewed; plan agreed upon as documented in EMR&OBIX.: Yes Comments: Patient was neither seen nor examined by me. Diagnosis: RELATED CONDITIONS, UNSPECIFIED, THIRD TRIMESTER
== END 2020-10-10 21:29 | disposition home or self-care (01) ==
LOC: FBPOP 20:19
PROVIDERS: ATTEND Obstetrics & Gynecology
DX: O36.8131 Decreased fetal movements, third trimester, fetus 1 (principal); O9A.213 Injury, poisoning and certain other consequences of external causes complicating pregnancy, third trimester; Z3A.35 35 weeks gestation of pregnancy
CPT/HCPCS: 59025; 99213

== ENCOUNTER 2020-11-01 05:00 | Outpatient (CLI) | payer BC ==
[2020-11-01 08:07] VITALS: BP 135/68; PULSE 62; RESP 20; TEMP 97.5
--- NOTE | 2020-11-02 09:10 | P.MSEPDOC ---
Presenting Problems - Arrival Data Date of Arrival on Unit: 11/01/20 Time of Arrival on Unit: 05:00 Mode of Transport: Ambulatory - Complaint OB-Reason for Admission/Chief Complaint: Possible Onset of Labor Medical History - Information : 1 Para: 0 Term: 0 : 0 Abortions: Spontaneous or Elective: 0 Number of Living Children: 0 - Gestational Age Gestational Age by RADHA (wks/days): 39 Weeks and 0 Days Review of Systems - Review of Systems Constitutional: No problems Breast: No problems ENT: No problems Cardiovascular: No problems Respiratory: No problems Gastrointestinal: No problems Genitourinary: No problems Musculoskeletal: No problems Neurological: No problems Skin: No problems Vital Signs - Temperature Temperature: 97.5 F Temperature Source: Temporal Artery Scan - Pulse Right Ulnar Pulse Rate: 62 Pulse Assessment Method: Auscultation - Respirations Respiratory Rate: 20 Oxygen Delivery Method: Room Air O2 Sat by Pulse Oximetry: 98 - Blood Pressure Right Arm Supine Blood Pressure: 135/68 Blood Pressure Mean: 90 Blood Pressure Source: Automatic Cuff Medical Screen Scoring - Cervical Exam Dilation (cm): 3 Effacement (%): 50 Station: -2 Membranes: Intact - Uterine Contractions Frequency From (mins): 2 Frequency To (mins): 7 Duration From (seconds): 40 Duration To (seconds): 60 Intensity: Mild Resting: Soft to palpation - Assessment - Baby A Baseline FHR: 120 Heart Rate - NICHD Category: Category I (Normal) NST: Reactive Physician Notification - Physician Notified Physician Notified Date: 11/01/20 Physician Notified Time: 06:20 Physician: Yue De La Cruz Order Received: Yes - Notification Comment Comment: May discharge to home with instructions to return is symptoms worsen, keep appointment tuesday if not delivered Maternal Triage Index - Maternal Triage Index Presenting for scheduled procedure w/no complaint: No - Stat/Priority 1 Stat Priority 1: No - Urgent/Priority 2 Urgent Priority 2: No - Prompt/Priority 3 Prompt Priority 3: No - Non-Urgent/Priority 4 Non-Urgent Priority 4: Yes Criteria Met for Priority 4: early labor signs >37 weeks Disposition - Disposition OB Disposition: Physician follow up in office, Discharge to home Discharge Date: 11/01/20 Discharge Time: 06:25 I agree with the RN Medical Screening Exam: Yes Case reviewed; plan agreed upon as documented in EMR&OBIX.: Yes Comments: Patient was not seen or examined by me at this visit Diagnosis: FALSE LABOR AT OR AFTER 37 COMPLETED WEEKS OF GESTATION
== END 2020-11-01 06:25 | disposition home or self-care (01) ==
LOC: FBPOP 05:00
PROVIDERS: ATTEND Obstetrics & Gynecology
DX: O47.1 False labor at or after 37 completed weeks of gestation (principal); Z3A.39 39 weeks gestation of pregnancy
CPT/HCPCS: 59025; 99213

== ENCOUNTER 2020-11-03 11:09 | Outpatient (CLI) | payer BC ==
[2020-11-03 11:57] VITALS: BP 131/80; PULSE 74; RESP 18; TEMP 96.8
--- NOTE | 2020-11-05 07:35 | P.MSEPDOC ---
Presenting Problems - Arrival Data Date of Arrival on Unit: 11/03/20 Time of Arrival on Unit: 11:09 Mode of Transport: Ambulatory - Complaint OB-Reason for Admission/Chief Complaint: Rule Out SROM Medical History - Information : 1 Para: 0 Term: 0 : 0 Abortions: Spontaneous or Elective: 0 Number of Living Children: 0 - Gestational Age Gestational Age by RADHA (wks/days): 39 Weeks and 2 Days Review of Systems - Review of Systems Constitutional: No problems Breast: No problems ENT: No problems Cardiovascular: No problems Respiratory: No problems Gastrointestinal: No problems Genitourinary: No problems Musculoskeletal: No problems Neurological: No problems Skin: No problems Vital Signs - Temperature Temperature: 96.8 F Temperature Source: Temporal Artery Scan - Pulse Apical Pulse Rate: 74 Pulse Assessment Method: Automatic Cuff - Respirations Respiratory Rate: 18 Oxygen Delivery Method: Room Air - Blood Pressure Right Arm Sitting Blood Pressure: 131/80 Blood Pressure Mean: 97 Blood Pressure Source: Automatic Cuff Medical Screen Scoring - Cervical Exam Dilation (cm): 3 Effacement (%): 50 Station: -2 Membranes: Intact - Uterine Contractions Resting: Soft to palpation - Assessment - Baby A Baseline FHR: 150 Heart Rate - NICHD Category: Category I (Normal) Physician Notification - Physician Notified Physician Notified Date: 11/03/20 Physician Notified Time: 11:44 Physician: Kiet Major Order Received: Yes - Notification Comment Comment: d/c home Maternal Triage Index - Maternal Triage Index Presenting for scheduled procedure w/no complaint: No - Stat/Priority 1 Stat Priority 1: No - Urgent/Priority 2 Urgent Priority 2: No - Prompt/Priority 3 Prompt Priority 3: No - Non-Urgent/Priority 4 Non-Urgent Priority 4: Yes Criteria Met for Priority 4: rule out SROM Disposition - Disposition OB Disposition: Physician follow up in office, Discharge to home Discharge Date: 11/03/20 Discharge Time: 11:55 I agree with the RN Medical Screening Exam: Yes Case reviewed; plan agreed upon as documented in EMR&OBIX.: Yes Comments: Patient was neither seen nor examined by me Diagnosis: FALSE LABOR AT OR AFTER 37 COMPLETED WEEKS OF GESTATION
== END 2020-11-03 11:55 | disposition home or self-care (01) ==
LOC: FBPOP 11:09
PROVIDERS: ATTEND Obstetrics & Gynecology
DX: O47.1 False labor at or after 37 completed weeks of gestation (principal); Z3A.39 39 weeks gestation of pregnancy
CPT/HCPCS: 59025; 84112; 99213

== ENCOUNTER 2020-11-08 10:00 | Inpatient (IN) | payer BC ==
[2020-11-12] MEDS ORDERED: METHYLERGONOVINE 0.2 MG/ML 1 ML AMP IM PRN (06:27)
[2020-11-12] MEDS ORDERED: OXYTOCIN 10 UNIT/ML 1 ML VIAL IM PRN (06:27)
[2020-11-12] MEDS ORDERED: CARBOPROST TROMETHAMINE 250 MCG/ML 1 ML AMP IM PRN (06:27)
[2020-11-12] MEDS ORDERED: TERBUTALINE 1 MG/ML VIAL SQ PRN (06:27)
[2020-11-12] MEDS ORDERED: LIDOCAINE 0.5% (PF) 5 MG/ML (50 ML SDV) SQ PRN (06:27)
[2020-11-12] MEDS: OXYTOCIN 30 UNITS/500 ML NS 30 UNIT in SALINE 1 500ML.BAG IV SCH ×2 (06:34→18:19)
[2020-11-12] MEDS: LACTATED RINGERS 1,000 ML IV SCH ×3 (06:35→14:35)
[2020-11-12 06:55] LABS: Basophils % (A) 0 %; Eosinophils # (A) 0.1 k/uL (0-0.7); Eosinophils % (A) 1 %; HCT 33.2 % (34.0-46.0); Lymphocytes % (A) 16 %; MCH 27.9 pg (25.0-35.0); MCV 84.6 fL (80.0-100.0); Mean Platelet Volume 8.4; Monocytes # (A) 0.6 k/uL (0-1.0); Monocytes % (A) 5 %; Neutrophils # (A) 9.3 k/uL (1.3-7.7); Neutrophils % (A) 76 %; Platelet Count 315 k/uL (150-450); RBC 3.93 m/uL (3.80-5.40); RDW 12.9 % (11.5-15.5); WBC 12.2 k/uL (3.8-10.6)
[2020-11-12] MEDS ORDERED: BUTORPHANOL 1 MG/ML 1 ML VIAL IV PRN (07:44)
--- NOTE | 2020-11-12 07:51 | P.HPOB ---
History of Present Illness H&P Date: 11/12/20 Chief Complaint: Dear for induction of labor with postdates and fa vorable cervix This is a 30-year-old white female 1 para 0 EDC 11/08/2020 40-4/7 weeks' gestation presents this morning for induction of labor. She is having mild irregular uterine contractions. Fetus is been active throughout the . Past medical history is significant for anemia. Past surgical history gastric sleeve in 2019. Current medications iron supplement daily, vitamin daily, baby aspirin daily. ALLERGIES none known. Family history significant for diabetes, hypertension, lupus, sarcoidosis. Social history patient works for the [employer] in the [place]. She is , never been a smoker, denies alcohol or drug use. history blood type is O-, rubella status immune. VDRL testing, group B strep cultures, gonorrhea and chlamydia cultures, urine culture, HIV testing all negative. One-hour Glucola 99. On exam patient is 5 foot 7 inches, 298 pounds, blood pressure 123/67, vital signs are stable and she is afebrile. The general exam is within normal limits. Chest is clear in all [place]. Extremities reveal trace edema. heart rate is consistent with reactive NST. Cervix is 3 cm dilated, anterior, soft, 60-70% effaced, -2 station, vertex presentation. Artificial amniorrhexis reveals clear fluid. Impression: 40-4/7 weeks intrauterine , favorable cervix, here for induction of labor. All signs reassuring. Plan: Continue close maternal and surveillance. Oxytocin per hospital protocol. Analgesic options reviewed with the patient. Anticipating normal spontaneous vaginal delivery. Review of Systems Constitutional: Reports as per HPI Past Medical History Past Medical History: No Reported History Additional Past Medical History / Comment(s): obesity History of Any Multi-Drug Resistant Organisms: None Reported Past Surgical History: No Surgical Hx Reported, Bariatric Surgery Additional Past Surgical History / Comment(s): Gastric Sleeve 09/18/18 Past Anesthesia/Blood Transfusion Reactions: No Reported Reaction, Family History of Problems w/ Anesthesia, Motion Sickness Additional Past Anesthesia/Blood Transfusion Reaction / Comment(s): entire family experiences ponv Past Psychological History: No Psychological Hx Reported Smoking Status: Never smoker Past Alcohol Use History: None Reported Past Drug Use History: None Reported - Past Family History Mother Family Medical History: No Reported History Medications and Allergies Home Medications Medication Instructions Recorded Confirmed Type Ferrous Sulfate [Iron] 325 mg PO DAILY 12/21/18 11/12/20 History Aspirin 81 mg PO DAILY 10/10/20 11/12/20 History Pnv No.95/Ferrous Fum/Folic AC 1 tab PO DAILY 10/10/20 11/12/20 History [ Multivitamin Tablet] Allergies Allergy/AdvReac Type Severity Reaction Status Date / Time No Known Allergies Allergy Verified 11/12/20 06:25 Exam Vital Signs Temp Pulse Resp BP Pulse Ox 11/12/20 06:17 98.0 F 57 L 16 123/67 98 Intake and Output 11/11/20 11/12/20 11/12/20 22:59 06:59 14:59 Other: Weight 135.171 kg See dictation under HPI please Results Result Diagrams: 11/12/20 06:25 Abnormal Lab Results - Last 24 Hours (Table) 11/12/20 Range/Units 06:25 WBC 12.2 H (3.8-10.6) k/uL Hgb 11.0 L (11.4-16.0) gm/dL Hct 33.2 L (34.0-46.0) % Neutrophils # 9.3 H (1.3-7.7) k/uL Assessment and Plan Assessment: 40-4/7 weeks intrauterine , here for induction of labor with favorable cervix. All signs reassuring. Plan: Oxytocin per hospital protocol. Continue close maternal and surveillance. Analgesic options reviewed. Anticipate normal spontaneous vaginal delivery. Time with Patient: Less than 30
[2020-11-12] MEDS ORDERED: fentaNYL (PF) 50 MCG/ML 5 ML AMP ONE (11:39)
[2020-11-12] MEDS ORDERED: ROPIVACAINE 5MG/ML 20ML VIAL ONE (11:39)
[2020-11-12] MEDS ORDERED: SODIUM CHLORIDE 0.9% 100 ML BAG ONE (11:39)
[2020-11-12] MEDS ORDERED: diphenhydrAMINE 50 MG CAP PO PRN (16:34)
[2020-11-12] MEDS ORDERED: SIMETHICONE 80 MG CHEWABLE PO PRN (16:34)
[2020-11-12] MEDS ORDERED: HYDROCORTISONE 2.5% RECTAL CREAM 30 GM TUBE RECTAL PRN (16:34)
[2020-11-12] MEDS ORDERED: diphenhydrAMINE ELIXIR 25 MG/10 ML CUP PO PRN (16:34)
[2020-11-12] MEDS ORDERED: LANOLIN CREAM 5 GM TUBE TOPICAL PRN (16:34)
[2020-11-12] MEDS ORDERED: ZOLPIDEM 5 MG TAB PO PRN (16:34)
[2020-11-12] MEDS ORDERED: diphenhydrAMINE 25 MG CAP PO PRN (16:34)
[2020-11-12] MEDS ORDERED: diphenhydrAMINE 50 MG/ML 1 ML VIAL IVP PRN ×2 (16:34)
[2020-11-12] MEDS ORDERED: BENZOCAINE/MENTHOL SPRAY 1 GM/SPRAY AEROSOL TOPICAL PRN (16:34)
--- NOTE | 2020-11-12 16:34 | P.PROBDLV ---
Vaginal Delivery Note - . Vaginal Delivery Note: This is a 30-year-old female 1 para 0 EDC 11/08/2020 at 40-4/7 weeks' gestation who presented for induction. is remarkable for blood type O negative, rubella status immune, group B strep cultures negative. Patient has had a gastric sleeve procedure, but weight on admission is 298 pounds. Please see my dictated history and physical for details. Artificial amniorrhexis revealed clear fluid. Oxytocin was started and titrated per hospital protocol. Epidural was placed per her request. Patient progressed well through the first stage of labor became completely dilated at 1541 hrs. and began the second stage of labor at that time. With excellent maternal expulsive efforts ultimately the infant's head crowned. The perineal body was prepped and draped in usual sterile fashion. Patient's fetus delivered occiput anterior and restituted accordingly. There was a tight nuchal cord 1 that was reduced on the perineal body. The left or anterior shoulder was then gently and easily delivered at which time the oropharynx, nasopharynx, and external nares were all bulb suctioned on the perineal body. Patient was delivered of a liveborn male infant at 1613 hrs. The umbilical cord was doubly clamped and ligated, he was handed to waiting nurses for evaluation where scores of 4 and 9 at one and 5 minutes respectively were given. Placenta delivered spontaneously, it was inspected and noted to be intact with trivascular cord at 1615 hrs. At this time the uterus is massaged. Careful inspection of the cervix, vagina, perineum, periurethral, and perirectal areas revealed a second-degree midline perineal laceration. This was repaired in the usual fashion using repeat suture. Good approximation was noted. Uterus is firm upon completion of delivery. All sponge needle and enhancement counts are correct. weighs 8 pounds 6.6 ounces or 3815 g. Patient is requesting circumcision for her infant son. She is allowed to begin the bonding screens in the LDR.
[2020-11-12] MEDS: IBUPROFEN 600 MG TAB PO SCH ×2 (17:27→18:17)
[2020-11-12] MEDS: SENNOSIDES-DOCUSATE SODIUM 1 EACH TAB PO SCH (19:28)
[2020-11-13] MEDS: LACTATED RINGERS 1,000 ML IV SCH (06:30)
--- NOTE | 2020-11-13 07:45 | P.DS ---
Providers Date of admission: 11/12/20 06:00 Expected date of discharge: 11/13/20 Attending physician: Yue De La Cruz Primary care physician: Stated None Hospital Course: This is a 30-year-old white female 1 para 0 EDC 11/08/2020 who presented at 40-4/7 weeks' for induction of labor with postdates and favorable cervix. is remarkable for blood type O-, rubella status immune, group B strep cultures negative. Please see dictated history and physical for details. Artificial amniorrhexis revealed clear fluid. Oxytocin was started and titrated. Epidural was placed per her request. She went on to deliver vagi terese a liveborn male infant with scores of 49 and 9 at one and 5 and 10 minutes respectively. There was a nuchal cord that was reduced. Infant weight 8 pounds 6.6 ounces or 3815 g. There was a small second-degree perineal laceration easily repaired, estimated blood loss 250 mL's. Please see my dictated delivery note for details. This morning the patient feels well. She is voiding, ambulating, passing flatus without difficulty. Vital signs are stable and she is afebrile. Fundus is firm and in the midline, symmetric and 18 week size. Extremities are negative for edema. [place] circumcision will be performed. Baby is doing well. Patient is judged to be in very good condition for discharge home. She will follow-up with me in the office in 6 weeks. I have reminded her no in tercourse, tampons or douching. She will use [id number] Advil or Aleve, or Motrin as needed for pain. She will call with any fevers shakes or chills, foul smelling or copious lochia, with the passage of large blood clots, with any pain not alleviated by [id number] products, or indeed with any concerns. Assessment: Doing well day #1 Patient Condition at Discharge: Good Plan - Discharge Summary Discharge Rx Participant: No New Discharge Prescriptions: No Action Ferrous Sulfate [Iron] 325 mg PO DAILY Pnv No.95/Ferrous Fum/Folic AC [ Multivitamin Tablet] 1 tab PO DAILY Aspirin 81 mg PO DAILY Discharge Medication List Ferrous Sulfate [Iron] 325 mg PO DAILY 12/21/18 [History] Aspirin 81 mg PO DAILY 10/10/20 [History] Pnv No.95/Ferrous Fum/Folic AC [ Multivitamin Tablet] 1 tab PO DAILY 10/10/20 [History] Follow up Appointment(s)/Referral(s): Yue De La Cruz MD [STAFF PHYSICIAN] - 6 Weeks Discharge Disposition: HOME SELF-CARE
[2020-11-13] MEDS: SENNOSIDES-DOCUSATE SODIUM 1 EACH TAB PO SCH (07:57)
[2020-11-13] MEDS: IBUPROFEN 600 MG TAB PO SCH ×3 (07:58→19:45)
[2020-11-14 00:51] VITALS: RESP 16
[2020-11-14] MEDS: IBUPROFEN 600 MG TAB PO SCH ×2 (04:35→06:10)
[2020-11-14] MEDS: SENNOSIDES-DOCUSATE SODIUM 1 EACH TAB PO SCH (04:35)
--- NOTE | 2020-11-14 08:02 | P.DS ---
Providers Date of admission: 11/12/20 06:00 Expected date of discharge: 11/14/20 Attending physician: Yue De La Cruz Primary care physician: Stated None Assessment: Doing well day #1 Patient Condition at Discharge: Good Plan - Discharge Summary Discharge Rx Participant: No New Discharge Prescriptions: No Action Ferrous Sulfate [Iron] 325 mg PO DAILY Pnv No.95/Ferrous Fum/Folic AC [ Multivitamin Tablet] 1 tab PO DAILY Aspirin 81 mg PO DAILY Discharge Medication List Ferrous Sulfate [Iron] 325 mg PO DAILY 12/21/18 [History] Aspirin 81 mg PO DAILY 10/10/20 [History] Pnv No.95/Ferrous Fum/Folic AC [ Multivitamin Tablet] 1 tab PO DAILY 10/10/20 [History] Follow up Appointment(s)/Referral(s): Yue De La Cruz MD [STAFF PHYSICIAN] - 6 Weeks Discharge Disposition: HOME SELF-CARE
[2020-11-14 17:06] VITALS: BP 118/72; PULSE 89; TEMP 98.5
== END 2020-11-14 16:00 | disposition home or self-care (01) | DRG 807 ==
LOC: 4FBP 11-12 06:00
PROVIDERS: ADMIT Obstetrics & Gynecology; ATTEND Obstetrics & Gynecology
PROC: 10E0XZZ Delivery of Products of Conception, External Approach (ICD-10-PCS; principal; 2020-11-12)
PROC: 0KQM0ZZ Repair Perineum Muscle, Open Approach (ICD-10-PCS; 2020-11-12)
DX: O48.0 Post-term pregnancy (principal); Z37.0 Single live birth; Z3A.40 40 weeks gestation of pregnancy; O69.1XX0 Labor and delivery complicated by cord around neck, with compression, not applicable or unspecified; O70.1 Second degree perineal laceration during delivery; Z79.82 Long term (current) use of aspirin; Z82.49 Family history of ischemic heart disease and other diseases of the circulatory system; Z83.3 Family history of diabetes mellitus
CPT/HCPCS: 85025; 86850; 86900; 86901

== ENCOUNTER 2023-01-15 08:49 | Emergency (ER) | payer BC ==
[2023-01-15 09:13] VITALS: BP 118/69; PULSE 61; RESP 20; TEMP 98
--- NOTE | 2023-01-15 09:15 | ED ---
General Adult HPI - General Chief complaint: Abdominal Pain Stated complaint: sharp left pain 7 wks preg Time Seen by Provider: 01/15/23 09:01 Source: patient, RN notes reviewed Mode of arrival: ambulatory Limitations: no limitations - History of Present Illness Initial comments: Patient is a pleasant 32-year-old female percent emergency department with concerns for left sided back and abdominal discomfort. Onset of symptoms was a couple of days ago. Patient questioned if she was constipated. Symptoms are low but worse today. Discomfort is left pelvic and left lower back. No history of similar symptoms previously. No dysuria or hematuria. No vaginal discharge or bleeding. Patient is approximate 7 weeks . - Related Data Home Medications Medication Instructions Recorded Confirmed Ferrous Sulfate [Iron] 325 mg PO DAILY 12/21/18 11/12/20 Aspirin 81 mg PO DAILY 10/10/20 11/12/20 Pnv No.95/Ferrous Fum/Folic AC 1 tab PO DAILY 10/10/20 11/12/20 [ Multivitamin Tablet] Allergies Allergy/AdvReac Type Severity Reaction Status Date / Time No Known Allergies Allergy Verified 01/15/23 08:58 Review of Systems ROS Statement: Those systems with pertinent positive or pertinent negative responses have been documented in the HPI. ROS Other: All systems not noted in ROS Statement are negative. Constitutional: Denies: fever Eyes: Denies: eye pain ENT: Denies: ear pain Respiratory: Denies: cough Cardiovascular: Denies: chest pain Endocrine: Denies: fatigue Gastrointestinal: Reports: as per HPI Genitourinary: Reports: as per HPI. Denies: hematuria Musculoskeletal: Reports: as per HPI Skin: Denies: rash Neurological: Denies: weakness Past Medical History Past Medical History: No Reported History Additional Past Medical History / Comment(s): obesity History of Any Multi-Drug Resistant Organisms: None Reported Past Surgical History: No Surgical Hx Reported, Bariatric Surgery Additional Past Surgical History / Comment(s): Gastric Sleeve 09/18/18 Past Anesthesia/Blood Transfusion Reactions: No Reported Reaction, Family History of Problems w/ Anesthesia, Motion Sickness Additional Past Anesthesia/Blood Transfusion Reaction / Comment(s): entire family experiences ponv Past Psychological History: No Psychological Hx Reported Smoking Status: Never smoker Past Alcohol Use History: None Reported Past Drug Use History: None Reported - Past Family History Mother Family Medical History: No Reported History General Exam Limitations: no limitations General appearance: alert, in no apparent distress Head exam: Present: normocephalic Eye exam: Present: normal appearance Neck exam: Present: normal inspection Respiratory exam: Present: normal lung sounds bilaterally Cardiovascular Exam: Present: regular rate, normal rhythm GI/Abdominal exam: Present: soft, tenderness (Minimal discomfort left lower abdomen/pelvis). Absent: distended Extremities exam: Present: normal inspection Back exam: Present: normal inspection Neurological exam: Present: alert Psychiatric exam: Present: normal affect, normal mood Skin exam: Present: normal color Course Vital Signs 01/15/23 08:56 Temperature 98 F Pulse Rate 61 Respiratory 20 Rate Blood Pressure 118/69 O2 Sat by Pulse 100 Oximetry Medical Decision Making - Medical Decision Making Was pt. sent in by a medical professional or institution (, PA, CLOTH FINISHER, urgent care, hospital, or half-way...) When possible be specific @ -No Did you speak to anyone other than the patient for history (EMS, parent, family, police, friend...)? What history was obtained from this source @ -No Did you review nursing and triage notes (agree or disagree)? Why? @ -I reviewed and agree with nursing and triage notes Were old charts reviewed (outside hosp., previous admission, EMS record, old EKG, old radiological studies, urgent care reports/EKG's, half-way records)? Report findings @ -No old charts were reviewed Differential Diagnosis (chest pain, altered mental status, abdominal pain women, abdominal pain men, vaginal bleeding, weakness, fever, dyspnea, syncope, headache, dizziness, GI bleed, back pain, seizure, CVA, palpatations, mental health, musculoskeletal)? @ -Differential Abdominal Pain Women: Appendicitis, Cholecystitis, diverticulosis, ischemic bowel, pancreatitis, hepatitis, UTI, gastroenteritis, AAA, incarcerated hernia, bowel obstruction, constipation, inflammatory bowel, hepatitis, peptic ulcer disease, splenic infarction, perforated viscus, vulvitis, ovarian torsion, PID, kidney stone, placenta abruption, this is not meant to be an all-inclusive list EKG interpreted by me (3pts min.). @ -As above X-rays interpreted by me (1pt min.). @ -None done CT interpreted by me (1pt min.). @ -None done U/S interpreted by me (1pt. min.). @ -Report reviewed What testing was considered but not performed or refused? (CT, X-rays, U/S, labs)? Why? @ -None What meds were considered but not given or refused? Why? @ -None Did you discuss the management of the patient with other professionals (professionals i.e. , PA, CLOTH FINISHER, lab, RT, psych nurse, social work therapist, park recreation manager, teacher, dairy quality assurance officer, case resolution specialist)? Give summary @ -No Was smoking cessation discussed for >3mins.? @ -No Was critical care preformed (if so, how long)? @ -No Were there social determinants of health that impacted care today? How? (Homelessness, low income, unemployed, alcoholism, drug addiction, transportation, low edu. Level, literacy, decrease access to med. care, ch[facility], rehab)? @ -No Was there de-escalation of care discussed even if they declined (Discuss DNR or withdrawal of care, Hospice)? DNR status @ -No What co-morbidities impacted this encounter? (DM, HTN, Smoking, COPD, CAD, Cancer, CVA, ARF, Chemo, Hep., AIDS, mental health diagnosis, sleep apnea, morbid obesity)? @ -None Was patient admitted / discharged? Hospital course, mention meds given and route, prescriptions, significant lab abnormalities, going to OR and other pertinent info. @ -Patient reevaluated and resting comfortably in bed. Discussed with patient regarding pelvic exam however patient has deferred. Patient is updated on results including ultrasound and need for follow-up with [facility]. Undiagnosed new problem with uncertain prognosis? @ -No Drug Therapy requiring intensive monitoring for toxicity (Heparin, Nitro, Insulin, Cardizem)? @ -No Were any procedures done? @ -No Diagnosis/symptom? @ -Pelvic pain, Acute, or Chronic, or Acute on Chronic? @ -Acute, acute Uncomplicated (without systemic symptoms) or Complicated (systemic symptoms)? @ -default Side effects of treatment? @ -No Exacerbation, Progression, or Severe Exacerbation? @ -No Poses a threat to life or bodily function? How? (Chest pain, [place], [place], pneumonia, PE, COPD, DKA, ARF, appy, cholecystitis, CVA, Diverticulitis, Homicidal, Suicidal, threat to staff... and all critical care pts) @ -No - Lab Data Result diagrams: 01/15/23 09:16 10/14/23 09:16 Lab Results 01/15/23 01/15/23 01/15/23 Range/Units 09:16 09:16 09:16 WBC 6.7 (3.8-10.6) k/uL RBC 4.30 (3.80-5.40) m/uL Hgb 11.0 L (11.4-16.0) gm/dL Hct 34.4 (34.0-46.0) % MCV 80.0 (80.0-100.0) fL MCH 25.5 (25.0-35.0) pg MCHC 31.9 (31.0-37.0) g/dL RDW 16.8 H (11.5-15.5) % Plt Count 128 L (150-450) k/uL MPV 9.5 Neutrophils % (Manual) 57 % Band Neuts % (Manual) 1 % Lymphocytes % (Manual) 35 % Monocytes % (Manual) 5 % Eosinophils % (Manual) 2 % Neutrophils # (Manual) 3.80 (1.3-7.7) k/uL Lymphocytes # (Manual) 2.35 (1.0-4.8) k/uL Monocytes # (Manual) 0.34 (0-1.0) k/uL Eosinophils # (Manual) 0.13 (0-0.7) k/uL Nucleated RBCs 0 (0-0) /100 WBC Manual Slide Review Performed Hypochromasia Slight Anisocytosis Slight APTT 26.2 (22.0-30.0) sec Sodium 138 (137-145) mmol/L Potassium 4.6 (3.5-5.1) mmol/L Chloride 106 (98-107) mmol/L Carbon Dioxide 23 (22-30) mmol/L Anion Gap 9 mmol/L BUN 6 L (7-17) mg/dL Creatinine 0.53 (0.52-1.04) mg/dL Est GFR (CKD-EPI)AfAm >90 (>60 ml/min/1.73 sqM) Est GFR (CKD-EPI)NonAf >90 (>60 ml/min/1.73 sqM) Glucose 92 (74-99) mg/dL Calcium 9.1 (8.4-10.2) mg/dL Total Bilirubin 0.5 (0.2-1.3) mg/dL AST 20 (14-36) U/L ALT 14 (4-34) U/L Alkaline Phosphatase 68 (38-126) U/L Total Protein 7.2 (6.3-8.2) g/dL Albumin 3.9 (3.5-5.0) g/dL HCG, Quant 52075.9 mIU/mL Blood Type Blood Type Recheck Bld Type Recheck Status 01/15/23 Range/Units 09:16 WBC (3.8-10.6) k/uL RBC (3.80-5.40) m/uL Hgb (11.4-16.0) gm/dL Hct (34.0-46.0) % MCV (80.0-100.0) fL MCH (25.0-35.0) pg MCHC (31.0-37.0) g/dL RDW (11.5-15.5) % Plt Count (150-450) k/uL MPV Neutrophils % (Manual) % Band Neuts % (Manual) % Lymphocytes % (Manual) % Monocytes % (Manual) % Eosinophils % (Manual) % Neutrophils # (Manual) (1.3-7.7) k/uL Lymphocytes # (Manual) (1.0-4.8) k/uL Monocytes # (Manual) (0-1.0) k/uL Eosinophils # (Manual) (0-0.7) k/uL Nucleated RBCs (0-0) /100 WBC Manual Slide Review Hypochromasia Anisocytosis APTT (22.0-30.0) sec Sodium (137-145) mmol/L Potassium (3.5-5.1) mmol/L Chloride (98-107) mmol/L Carbon Dioxide (22-30) mmol/L Anion Gap mmol/L BUN (7-17) mg/dL Creatinine (0.52-1.04) mg/dL Est GFR (CKD-EPI)AfAm (>60 ml/min/1.73 sqM) Est GFR (CKD-EPI)NonAf (>60 ml/min/1.73 sqM) Glucose (74-99) mg/dL Calcium (8.4-10.2) mg/dL Total Bilirubin (0.2-1.3) mg/dL AST (14-36) U/L ALT (4-34) U/L Alkaline Phosphatase (38-126) U/L Total Protein (6.3-8.2) g/dL Albumin (3.5-5.0) g/dL HCG, Quant mIU/mL Blood Type O Negative Blood Type Recheck O Neg Bld Type Recheck Status [facility] ONLY Disposition Clinical Impression: Intrauterine , Pelvic pain Disposition: HOME SELF-CARE Condition: Stable Instructions (If sedation given, give patient instructions): Pelvic Pain in Women (ED), Threatened Miscarriage (ED), Abdominal Pain in (ED) Additional Instructions: Please do follow-up with your [facility] in the next day or 2 for recheck. Please also follow-up with primary care physician in the next couple days for recheck. Return for increased pain, fever, bleeding, worsening or changing symptoms or other concerns. Is patient prescribed a controlled substance at d/c from ED?: No Referrals: Elena Chapa DO [Doctor of Osteopathic Medicine] - 1-2 days Patrice Song MD [STAFF PHYSICIAN] - 1-2 days Time of Disposition: 11:44
[2023-01-15 09:58] LABS: Anisocytosis Slight; HCT 34.4 % (34.0-46.0); Hypochromasia Slight; MCH 25.5 pg (25.0-35.0); MCHC 31.9 g/dL (31.0-37.0); Mean Platelet Volume 9.5; RDW 16.8 % (11.5-15.5); WBC 6.7 k/uL (3.8-10.6)
[2023-01-15 09:59] LABS: ALT 14 U/L (4-34); AST 20 U/L (14-36); African American GFR (CKD) >90 (>60 ml/min/1.73 sqM); Albumin 3.9 g/dL (3.5-5.0); Alkaline Phosphatase 68 U/L (38-126); Anion Gap 9 mmol/L; Blood Urea Nitrogen 6 mg/dL (7-17); Calcium 9.1 mg/dL (8.4-10.2); Carbon Dioxide 23 mmol/L (22-30); Chloride 106 mmol/L (98-107); Glucose 92 mg/dL (74-99); Non-African American GFR(CKD) >90 (>60 ml/min/1.73 sqM); Potassium 4.6 mmol/L (3.5-5.1); Sodium 138 mmol/L (137-145); Total Bilirubin 0.5 mg/dL (0.2-1.3); Total Protein 7.2 g/dL (6.3-8.2)
[2023-01-15 10:48] LABS: HCG,Quantitative Serum 49417.9 mIU/mL
[2023-01-15 10:59] LABS: Band Neutrophils % 1 %; Eosinophils # (M) 0.13 k/uL (0-0.7); Lymphocytes # (M) 2.35 k/uL (1.0-4.8); Monocytes # (M) 0.34 k/uL (0-1.0); Neutrophils % (M) 57 %; Nucleated Red Blood Cells 0 /100 WBC (0-0); Total Cells Counted 100
[2023-01-15 11:01] LABS: Platelet Count 128 k/uL (150-450)
--- NOTE | 2023-01-15 11:06 | US ---
EXAMINATION TYPE: Transabdominal DATE OF EXAM: 01/15/2023 10:09 AM COMPARISON: NONE CLINICAL INDICATION: Female, 32 years old with history of pain; Left pelvic pain x 1 day EXAM PERFORMED: Transabdominal (TA) EXAM MEASUREMENTS: GESTATIONAL AGE / DATING Physician Established: Not yet established Dates by LMP: (6 weeks/5 days) EDC: 09/05/2023 Dates by First Scan: No previous this is first scan Dates by Current Scan for: (6 weeks/5 days) EDC: 09/05/2023 MATERNAL ANATOMY Uterus: 10.0 x 5.1 x 6.4cm Right Ovary: 2.7 x 2.0 x 2.4cm Left Ovary: 3.8 x 2.6 x 3.8cm Post CDS / Adnexa: wnl Presence of free fluid: no Presence of corpus luteal cyst: left ovary: 2.4 x 1.5 x 2.3cm Presence of subchorionic bleed: 0.9 x 1.1 x 1.5cm hypoechoic area superior to gestational sac GESTATION / SURVEY CRL: 0.7cm (6 weeks/5 days) Yolk Sac (normal less than 6mm): not seen Heart Rate: 123 bpm Rhythm: Normal IUP: Viable IUP Date of LMP: 11/29/2022 Beta HcG (if available): Not available at time of exam IMPRESSION: There is a single viable intrauterine . Corpus luteal cyst noted.
[2023-01-15 12:07] LABS: Appearance,Urine Clear (Clear); Bacteria,Urine Few /hpf; Bilirubin,Urine Negative (Negative); Blood,Urine Negative (Negative); Color,Urine Colorless; Glucose,Urine (UA) Negative (Negative); Ketones,Urine Negative (Negative); Leukocyte Esterase,Urine Large (Negative); Nitrite,Urine Negative (Negative); PH, Urine 7.5 (5.0-8.0); Protein,Urine Negative (Negative); RBC,Urine 1 /hpf (0-5); Specific Gravity,Urine 1.008 (1.001-1.035); Squamous Epithelial Cell,Urine 2 /hpf (0-4); Urobilinogen,Urine <2.0 mg/dL (<2.0); WBC,Urine 2 /hpf (0-5)
== END 2023-01-15 11:58 | disposition home or self-care (01) ==
LOC: EC 08:49
DX: O00.01 Abdominal pregnancy with intrauterine pregnancy (principal); Z3A.01 Less than 8 weeks gestation of pregnancy
CPT/HCPCS: 36415; 76801; 80053; 81001; 84702; 85025; 85730; 86900; 86901; 99284

== ENCOUNTER → 2023-04-27 | Outpatient (CLI) | payer BC ==
--- NOTE | 2023-04-27 18:27 | US ---
EXAMINATION TYPE: US OB limited DATE OF EXAM: 04/27/2023 COMPARISON: 01/15/23 CLINICAL INDICATION: Female, 32 years old with history of bleeding; Spotting today with mild cramping . Pt states hx of constipation with this , and thinks cramping could be from that. Pt states she had her anatomy done last week at outside facility and everything looked normal. EXAM PERFORMED: Transabdominal (TA) GESTATIONAL AGE / DATING Physician Established: (21 weeks/2 days) EDC: 09/05/23 No growth performed on today?s study per ordering physician SURVEY PLACENTA: Anterior PREVIA: No Previa Ultrasound evidence of abruption? No GRACE: 11.4 cm Normal Ultrasound evidence of premature rupture of membranes? No PRESENTATION: Breech LIE: Oblique HEART RATE: 144 bpm RHYTHM: Normal No evidence for placental abruption IMPRESSION: Single live intrauterine gestation ultrasound age 20 weeks 2 days.
[2023-04-27 21:47] VITALS: BP 120/58; PULSE 78; RESP 16; TEMP 97.2
--- NOTE | 2023-05-11 13:43 | P.MSEPDOC ---
Presenting Problems - Arrival Data Date of Arrival on Unit: 04/27/23 Time of Arrival on Unit: 17:12 Mode of Transport: Portable - Complaint OB-Reason for Admission/Chief Complaint: Vaginal Bleeding Comment: presents with c/o spotting 2 times in last few hours Medical History - Information : 2 Para: 1 Term: 1 : 0 Abortions: Spontaneous or Elective: 0 Number of Living Children: 1 - Gestational Age Gestational Age by RADHA (wks/days): 21 Weeks and 2 Days Review of Systems - Review of Systems Constitutional: No problems Breast: No problems ENT: No problems Cardiovascular: No problems Respiratory: No problems Gastrointestinal: Constipation Genitourinary: No problems Musculoskeletal: No problems Neurological: No problems Skin: No problems Comment: pt states has issues with constipation. diet options discussed Vital Signs - Temperature Temperature: 97.2 F Temperature Source: Temporal Artery Scan - Pulse Right Pulse Rate: 78 Pulse Assessment Method: Automatic Cuff - Respirations Respiratory Rate: 16 Oxygen Delivery Method: Room Air - Blood Pressure Right Arm Blood Pressure: 120/58 Blood Pressure Mean: 78 Blood Pressure Source: Automatic Cuff Medical Screen Scoring - Assessment - Baby A Baseline FHR: 140s Physician Notification - Physician Notified Physician Notified Date: 04/27/23 Physician Notified Time: 17:35 - Notification Comment Comment: no visible bleding external or on pad. ultrasound shows no placental concerns. FHT 140s per doppler Maternal Triage Index - Stat/Priority 1 Stat Priority 1: No - Urgent/Priority 2 Urgent Priority 2: No - Prompt/Priority 3 Prompt Priority 3: No - Non-Urgent/Priority 4 Non-Urgent Priority 4: Yes Criteria Met for Priority 4: 21 weeks spotting Disposition - Disposition OB Disposition: Discharge to home Discharge Date: 04/27/23 Discharge Time: 18:50 I agree with the RN Medical Screening Exam: Yes Case reviewed; plan agreed upon as documented in EMR&OBIX.: Yes Diagnosis: RELATED CONDITIONS, UNSPECIFIED, SECOND TRIMESTER
== END ==
LOC: FBPOP 17:12
PROVIDERS: ATTEND Obstetrics & Gynecology
DX: O26.852 Spotting complicating pregnancy, second trimester (principal); Z3A.21 21 weeks gestation of pregnancy; Z79.82 Long term (current) use of aspirin
CPT/HCPCS: 76815; 99213; 99215

== ENCOUNTER 2023-06-01 14:56 | Outpatient (CLI) | payer BC ==
[2023-06-01 15:55] VITALS: BP 133/60; PULSE 74; RESP 16; TEMP 96.7
--- NOTE | 2023-07-20 18:14 | P.MSEPDOC ---
Presenting Problems - Arrival Data Date of Arrival on Unit: 06/01/23 Time of Arrival on Unit: 15:20 Mode of Transport: Ambulatory - Complaint OB-Reason for Admission/Chief Complaint: Decreased Movement Medical History - Information : 2 Para: 1 Number of Living Children: 1 - Gestational Age Gestational Age by RADHA (wks/days): 26 Weeks and 2 Days Review of Systems - Review of Systems Constitutional: No problems Breast: No problems ENT: No problems Cardiovascular: No problems Respiratory: No problems Gastrointestinal: No problems Genitourinary: No problems Musculoskeletal: No problems Neurological: No problems Skin: No problems Vital Signs - Temperature Temperature: 96.7 F Temperature Source: Temporal Artery Scan - Pulse Right Sitting Brachial Pulse Rate: 74 Pulse Assessment Method: Automatic Cuff - Respirations Respiratory Rate: 16 Oxygen Delivery Method: Room Air O2 Sat by Pulse Oximetry: 100 - Blood Pressure Right Arm Sitting Blood Pressure: 133/60 Blood Pressure Mean: 84 Blood Pressure Source: Automatic Cuff Medical Screen Scoring - Assessment - Baby A Baseline FHR: 130 Heart Rate - NICHD Category: Category I (Normal) Physician Notification - Physician Notified Physician Notified Date: 06/01/23 Physician Notified Time: 15:37 Physician: Elena Chapa New Order Received: Yes - Notification Comment Comment: discharge Maternal Triage Index - Maternal Triage Index Presenting for scheduled procedure w/no complaint: No - Stat/Priority 1 Stat Priority 1: No - Urgent/Priority 2 Urgent Priority 2: Yes Provider Notified: Elena Chapa Provider Notified Time: 15:37 Criteria Met for Priority 2: decreased movement Disposition - Disposition OB Disposition: Discharge to home Discharge Date: 06/01/23 Discharge Time: 15:51 I agree with the RN Medical Screening Exam: Yes Case reviewed; plan agreed upon as documented in EMR&OBIX.: Yes Diagnosis: DECREASED MOVEMENTS, SECOND TRIMESTER, FETUS 1
== END 2023-06-01 15:51 | disposition home or self-care (01) ==
LOC: FBPOP 14:56
PROVIDERS: ATTEND Obstetrics & Gynecology Obstetrics
DX: O36.8121 Decreased fetal movements, second trimester, fetus 1 (principal); Z3A.26 26 weeks gestation of pregnancy
CPT/HCPCS: 99213

== ENCOUNTER 2023-08-03 13:16 | Outpatient (CLI) | payer BC ==
--- NOTE | 2023-08-03 15:03 | US ---
EXAMINATION TYPE: US OB BPP wo non-stress DATE OF EXAM: 08/03/2023 COMPARISON: CLINICAL INDICATION: Female, 33 years old with history of decreased movement, arrhythmia; TECHNIQUE: Transabdominal (TA). Scoring by the metal cabinet finisher during real-time assessment. FINDINGS: BPP PARAMETERS: PRESENTATION: Vertex HEART RATE: 161 bpm GRACE: 12.0 cm DIAPHRAGM IMAGED: Yes BPP SCORIN. Breathin (1 episode of breathing of 30 second duration in 30 minutes of scanning time) 2. Movement: 2 (at least 3 discrete body movements in 30 minutes) 3. Tone: 2 (1 episode of active flexion/extension of limb) 4. GRACE: 2 (GRACE index > 5cm) IMPRESSION: TOTAL SCORE: 8 / 8
[2023-08-03 16:06] VITALS: BP 127/70; PULSE 93; RESP 16; TEMP 98.6
--- NOTE | 2023-09-05 09:11 | P.MSEPDOC ---
Presenting Problems - Arrival Data Date of Arrival on Unit: 08/03/23 Time of Arrival on Unit: 13:16 Mode of Transport: Ambulatory - Complaint OB-Reason for Admission/Chief Complaint: Decreased Movement Medical History - Information : 2 Para: 1 Term: 1 : 0 Abortions: Spontaneous or Elective: 0 Number of Living Children: 1 - Gestational Age Gestational Age by RADHA (wks/days): 35 Weeks and 2 Days Review of Systems - Review of Systems Constitutional: No problems Breast: No problems ENT: No problems Cardiovascular: No problems Respiratory: No problems Gastrointestinal: No problems Genitourinary: No problems Musculoskeletal: No problems Neurological: No problems Skin: No problems Vital Signs - Temperature Temperature: 98.6 F Temperature Source: Temporal Artery Scan - Pulse Right Sitting Pulse Rate: 93 Pulse Assessment Method: Automatic Cuff - Respirations Respiratory Rate: 16 Oxygen Delivery Method: Room Air O2 Sat by Pulse Oximetry: 97 - Blood Pressure Right Arm Blood Pressure: 127/70 Blood Pressure Mean: 89 Blood Pressure Source: Automatic Cuff Medical Screen Scoring - Assessment - Baby A Baseline FHR: 130 Heart Rate - NICHD Category: Category I (Normal) Physician Notification - Physician Notified Physician Notified Date: 08/03/23 Physician Notified Time: 15:36 Physician: Elena Chapa New Order Received: Yes (d/c) Maternal Triage Index - Urgent/Priority 2 Urgent Priority 2: Yes Provider Notified: Elena Chapa Provider Notified Time: 13:53 Criteria Met for Priority 2: decreased movement, unable to obatin nst due to audible arrhythmia, bpp 8/8 Disposition - Disposition OB Disposition: Discharge to home Discharge Date: 08/03/23 Discharge Time: 15:39 I agree with the RN Medical Screening Exam: Yes Case reviewed; plan agreed upon as documented in EMR&OBIX.: Yes Diagnosis: DECREASED MOVEMENTS, THIRD TRIMESTER, FETUS 1
== END 2023-08-03 15:39 | disposition home or self-care (01) ==
LOC: FBPOP 13:16
PROVIDERS: ATTEND Obstetrics & Gynecology Obstetrics
DX: O36.8131 Decreased fetal movements, third trimester, fetus 1 (principal); Z3A.35 35 weeks gestation of pregnancy
CPT/HCPCS: 76819; 99213

== ENCOUNTER 2023-08-16 21:15 | Outpatient (CLI) | payer BC ==
[2023-08-16 21:50] LABS: Basophils % (A) 0 %; Eosinophils # (A) 0.1 k/uL (0-0.7); Eosinophils % (A) 1 %; HCT 32.2 % (34.0-46.0); HGB 10.2 gm/dL (11.4-16.0); Lymphocytes # (A) 2.4 k/uL (1.0-4.8); Lymphocytes % (A) 21 %; MCH 26.4 pg (25.0-35.0); MCHC 31.8 g/dL (31.0-37.0); Mean Platelet Volume 8.5; Monocytes # (A) 0.7 k/uL (0-1.0); Monocytes % (A) 6 %; Neutrophils # (A) 8.3 k/uL (1.3-7.7); Neutrophils % (A) 71 %; Platelet Count 304 k/uL (150-450); RBC 3.88 m/uL (3.80-5.40); RDW 12.7 % (11.5-15.5); WBC 11.7 k/uL (3.8-10.6)
[2023-08-16 22:03] LABS: Creatinine,Urine Random 299.9 mg/dL; Protein/Creatinine Ratio,Urine 0.053
[2023-08-16 22:04] LABS: ALT 15 U/L (4-34); AST 18 U/L (14-36); African American GFR (CKD) >90 (>60 ml/min/1.73 sqM); Blood Urea Nitrogen 11 mg/dL (7-17); LDH 167 U/L (120-246); Non-African American GFR(CKD) >90 (>60 ml/min/1.73 sqM); Uric Acid 3.8 mg/dL (3.7-7.4)
[2023-08-16 22:24] LABS: Appearance,Urine Cloudy (Clear); Bacteria,Urine Few /hpf; Bilirubin,Urine Negative (Negative); Blood,Urine Negative (Negative); Calcium Oxalate Crystals,Urine Moderate /hpf; Color,Urine Yellow; Glucose,Urine (UA) Negative (Negative); Hyaline Casts,Urine 7 /lpf (0-2); Ketones,Urine Negative (Negative); Leukocyte Esterase,Urine Trace (Negative); Mucus,Urine Many /hpf; Nitrite,Urine Negative (Negative); Protein,Urine 1+ (Negative); Specific Gravity,Urine 1.034 (1.001-1.035); Squamous Epithelial Cell,Urine 2 /hpf (0-4); WBC,Urine 13 /hpf (0-5)
[2023-08-16 23:31] VITALS: BP 105/56; PULSE 72; RESP 16; TEMP 98.2
--- NOTE | 2023-09-05 09:29 | P.MSEPDOC ---
Presenting Problems - Arrival Data Date of Arrival on Unit: 08/16/23 Time of Arrival on Unit: 21:15 Mode of Transport: Ambulatory - Complaint OB-Reason for Admission/Chief Complaint: PIH Comment: Patient presents to triage after speaking with business operations consultant OB about elevated BP at home. Patient complains of swelling in feet, ankles and fingers. Denies swelling in face. Patient denies headache currently but has had one the last two days. Medical History - Information : 2 Para: 1 Term: 1 : 0 Abortions: Spontaneous or Elective: 0 Number of Living Children: 1 - Gestational Age Gestational Age by RADHA (wks/days): 37 Weeks and 1 Days Review of Systems - Review of Systems Constitutional: No problems Breast: No problems ENT: No problems Cardiovascular: No problems Respiratory: No problems Gastrointestinal: No problems Genitourinary: No problems Musculoskeletal: No problems Neurological: No problems Skin: No problems Vital Signs - Temperature Temperature: 98.2 F Temperature Source: Temporal Artery Scan - Pulse Pulse Oximetery Pulse Rate: 72 Pulse Assessment Method: Pulse Oximetry - Respirations Respiratory Rate: 16 Oxygen Delivery Method: Room Air O2 Sat by Pulse Oximetry: 97 - Blood Pressure Right Arm Blood Pressure: 105/56 Blood Pressure Mean: 72 Blood Pressure Source: Automatic Cuff Medical Screen Scoring - Cervical Exam Membranes: Intact - Assessment - Baby A Baseline FHR: 145 Heart Rate - NICHD Category: Category I (Normal) NST: Reactive Physician Notification - Physician Notified Physician Notified Date: 08/16/23 Physician Notified Time: 22:32 Physician: Elena Chapa New Order Received: Yes - Notification Comment Comment: Dr. Chapa called at home, labs reviewed, physical assessment reviewed. Orders to discharge home. Maternal Triage Index - Maternal Triage Index Presenting for scheduled procedure w/no complaint: No - Stat/Priority 1 Stat Priority 1: No - Urgent/Priority 2 Urgent Priority 2: Yes Provider Notified: Elena Chpaa Provider Notified Time: 22:32 Criteria Met for Priority 2: Patient presents to triage after speaking with business operations consultant OB about elevated BP with SBP >140 at home. Patient complains of swelling in feet, ankles and fingers. Denies swelling in face. Patient denies headache currently but has had one the last two days. Dr. Chapa notified unit ahead of pt's arrival and orders PIH labs. Disposition - Disposition OB Disposition: Discharge to home Discharge Date: 08/16/23 Discharge Time: 22:35 I agree with the RN Medical Screening Exam: Yes Case reviewed; plan agreed upon as documented in EMR&OBIX.: Yes Diagnosis: FALSE LABOR AT OR AFTER 37 COMPLETED WEEKS OF GESTATION
== END 2023-08-16 22:35 | disposition home or self-care (01) ==
LOC: FBPOP 21:15
PROVIDERS: ATTEND Obstetrics & Gynecology Obstetrics
DX: O47.1 False labor at or after 37 completed weeks of gestation (principal); O13.3 Gestational [pregnancy-induced] hypertension without significant proteinuria, third trimester; Z3A.37 37 weeks gestation of pregnancy
CPT/HCPCS: 36415; 59025; 81001; 82565; 82570; 83615; 84156; 84450; 84460; 84520; 84550; 85025; 87086; 99215

== ENCOUNTER 2023-08-24 16:15 | Outpatient (CLI) | payer BC ==
[2023-08-24 18:50] VITALS: BP 94/55; PULSE 65; RESP 18; TEMP 98.3
--- NOTE | 2023-09-05 09:39 | P.MSEPDOC ---
Presenting Problems - Arrival Data Date of Arrival on Unit: 08/24/23 Time of Arrival on Unit: 16:15 Mode of Transport: Ambulatory - Complaint OB-Reason for Admission/Chief Complaint: Possible Onset of Labor, Rule Out SROM Comment: C/o contractions every 2-5mins starting at 0230 this morning and possible srom at 1400, "clear fluid". Medical History - Information : 2 Para: 1 Term: 1 : 0 Abortions: Spontaneous or Elective: 0 Number of Living Children: 1 - Gestational Age Gestational Age by RADHA (wks/days): 38 Weeks and 2 Days Review of Systems - Review of Systems Constitutional: No problems Breast: No problems ENT: No problems Cardiovascular: No problems Respiratory: No problems Gastrointestinal: No problems Genitourinary: No problems Musculoskeletal: No problems Neurological: No problems Skin: No problems Vital Signs - Temperature Temperature: 98.3 F Temperature Source: Temporal Artery Scan - Pulse Pulse Oximetery Pulse Rate: 65 Pulse Assessment Method: Pulse Oximetry - Respirations Respiratory Rate: 18 Oxygen Delivery Method: Room Air O2 Sat by Pulse Oximetry: 98 - Blood Pressure Right Arm Blood Pressure: 94/55 Blood Pressure Mean: 68 Blood Pressure Source: Automatic Cuff Medical Screen Scoring - Cervical Exam Dilation (cm): 2 Effacement (%): 50 Station: -3 Membranes: Intact - Uterine Contractions Intensity: Mild Resting: Soft to palpation - Assessment - Baby A Baseline FHR: 120 Heart Rate - NICHD Category: Category I (Normal) NST: Reactive Physician Notification - Physician Notified Physician Notified Date: 08/24/23 Physician Notified Time: 17:06 Physician: Elena Chapa New Order Received: Yes (Discharge home with follow up instructions.) Maternal Triage Index - Maternal Triage Index Presenting for scheduled procedure w/no complaint: No - Stat/Priority 1 Stat Priority 1: No - Urgent/Priority 2 Urgent Priority 2: No Provider Notified: Elena Chapa Provider Notified Time: 17:06 - Prompt/Priority 3 Prompt Priority 3: Yes Criteria Met for Priority 3: c/o contractions 2-5mins starting at 0230 and possible SROM at 1400 "clear fluid." Disposition - Disposition OB Disposition: Discharge to home Discharge Date: 08/24/23 Discharge Time: 17:45 I agree with the RN Medical Screening Exam: Yes Case reviewed; plan agreed upon as documented in EMR&OBIX.: Yes Diagnosis: FALSE LABOR AT OR AFTER 37 COMPLETED WEEKS OF GESTATION
== END 2023-08-24 17:45 | disposition home or self-care (01) ==
LOC: FBPOP 16:15
PROVIDERS: ATTEND Obstetrics & Gynecology Obstetrics
DX: O47.1 False labor at or after 37 completed weeks of gestation (principal); Z3A.38 38 weeks gestation of pregnancy
CPT/HCPCS: 59025; 84112; 99213

== ENCOUNTER 2023-08-26 15:16 | Outpatient (CLI) | payer BC ==
[2023-08-26 15:55] VITALS: BP 134/61; PULSE 85; RESP 18; TEMP 96.6
--- NOTE | 2023-08-27 12:11 | P.MSEPDOC ---
Presenting Problems - Arrival Data Date of Arrival on Unit: 08/26/23 Time of Arrival on Unit: 15:15 Mode of Transport: Ambulatory - Complaint OB-Reason for Admission/Chief Complaint: Decreased Movement Comment: Pt states decreased movement since 0700 Medical History - Information : 2 Para: 1 Term: 1 Number of Living Children: 1 - Gestational Age Gestational Age by RADHA (wks/days): 38 Weeks and 4 Days Review of Systems - Review of Systems Constitutional: No problems Breast: No problems ENT: No problems Cardiovascular: No problems Respiratory: No problems Gastrointestinal: No problems Genitourinary: No problems Musculoskeletal: No problems Neurological: No problems Skin: No problems Vital Signs - Temperature Temperature: 96.6 F Temperature Source: Temporal Artery Scan - Pulse Right Sitting Brachial Pulse Rate: 85 Pulse Assessment Method: Automatic Cuff - Respirations Respiratory Rate: 18 Oxygen Delivery Method: Room Air O2 Sat by Pulse Oximetry: 98 - Blood Pressure Right Arm Sitting Blood Pressure: 134/61 Blood Pressure Mean: 85 Blood Pressure Source: Automatic Cuff Medical Screen Scoring - Assessment - Baby A Baseline FHR: 120 Heart Rate - NICHD Category: Category I (Normal) NST: Reactive Physician Notification - Physician Notified Physician Notified Date: 08/26/23 Physician Notified Time: 15:00 Physician: Kiet Major New Order Received: Yes - Notification Comment Comment: Physician called c\orders prior to pt arrival. Pt c\decreased movement, , 38 4/7, reactive NST obtained c\ movement tracked by patient. Cat 1 FHT. Pt discharged home c\triage instructions, to follow up as scheduled for IOL Tuesday08/30/23. Maternal Triage Index - Urgent/Priority 2 Urgent Priority 2: Yes Provider Notified: Kiet Major Provider Notified Time: 15:00 Criteria Met for Priority 2: Decreased movement Disposition - Disposition OB Disposition: Discharge to home, Written follow up instructions reviewed Discharge Date: 08/26/23 Discharge Time: 15:45 I agree with the RN Medical Screening Exam: Yes Physician's MSE Comment: I have neither seen nor examined the patient. Case reviewed; plan agreed upon as documented in EMR&OBIX.: Yes Diagnosis: RELATED CONDITIONS, UNSPECIFIED, THIRD TRIMESTER
== END 2023-08-26 15:45 | disposition home or self-care (01) ==
LOC: FBPOP 15:16
PROVIDERS: ATTEND Obstetrics & Gynecology
DX: O36.8131 Decreased fetal movements, third trimester, fetus 1 (principal); Z3A.38 38 weeks gestation of pregnancy
CPT/HCPCS: 59025; 99213

== ENCOUNTER 2023-08-30 06:00 | Inpatient (IN) | payer BC ==
[2023-08-30] MEDS ORDERED: TRANEXAMIC 1,000 MG/100ML-NACL 1,000 MG in EMPTY BAG 1 BAG IV PRN (06:14)
[2023-08-30] MEDS ORDERED: OXYTOCIN 10 UNIT/ML 1 ML VIAL IM PRN (06:14)
[2023-08-30] MEDS ORDERED: miSOPROStoL 200 MCG TAB PO PRN (06:14)
[2023-08-30] MEDS ORDERED: TERBUTALINE 1 MG/ML VIAL SQ PRN (06:14)
[2023-08-30] MEDS ORDERED: METHYLERGONOVINE 0.2 MG/ML 1 ML AMP IM PRN (06:14)
[2023-08-30] MEDS ORDERED: CARBOPROST TROMETHAMINE 250 MCG/ML 1 ML AMP IM PRN (06:14)
[2023-08-30] MEDS: LACTATED RINGERS 1,000 ML IV SCH (06:28)
[2023-08-30] MEDS: AMPICILLIN 2,000 MG in SODIUM CHLORIDE 0.9% 100 ML IVPB STA (06:28)
[2023-08-30] MEDS: OXYTOCIN 30 UNITS/500 ML NS 30 UNIT in SALINE 1 500ML.BAG IV SCH (06:32)
[2023-08-30 06:47] LABS: Basophils % (A) 0 %; Eosinophils # (A) 0.1 k/uL (0-0.7); Eosinophils % (A) 1 %; HCT 31.6 % (34.0-46.0); HGB 10.1 gm/dL (11.4-16.0); Lymphocytes % (A) 19 %; MCH 25.9 pg (25.0-35.0); MCHC 31.9 g/dL (31.0-37.0); MCV 81.3 fL (80.0-100.0); Mean Platelet Volume 8.7; Monocytes # (A) 0.5 k/uL (0-1.0); Monocytes % (A) 5 %; Neutrophils # (A) 7.5 k/uL (1.3-7.7); Neutrophils % (A) 73 %; Platelet Count 314 k/uL (150-450); RBC 3.88 m/uL (3.80-5.40); RDW 12.7 % (11.5-15.5); WBC 10.3 k/uL (3.8-10.6)
[2023-08-30] MEDS: AMPICILLIN 1,000 MG in SODIUM CHLORIDE 0.9% 50 ML IVPB SCH (10:17)
[2023-08-30] MEDS ORDERED: diphenhydrAMINE 50 MG/ML 1 ML VIAL IVP PRN ×2 (14:29)
[2023-08-30] MEDS ORDERED: SIMETHICONE 80 MG CHEWABLE PO PRN (14:29)
[2023-08-30] MEDS ORDERED: diphenhydrAMINE 50 MG CAP PO PRN (14:29)
[2023-08-30] MEDS ORDERED: ZOLPIDEM 5 MG TAB PO PRN (14:29)
[2023-08-30] MEDS ORDERED: HYDROCORTISONE 2.5% RECTAL CREAM 30 GM TUBE RECTAL PRN (14:29)
[2023-08-30] MEDS ORDERED: diphenhydrAMINE 25 MG CAP PO PRN (14:29)
[2023-08-30] MEDS ORDERED: ACETAMINOPHEN TAB 325 MG TAB PO PRN (14:29)
[2023-08-30] MEDS ORDERED: LANOLIN CREAM 1 GM TUBE TOPICAL PRN (14:29)
--- NOTE | 2023-08-30 14:32 | P.PROBDLV ---
Vaginal Delivery Note - . Vaginal Delivery Note: Findings viable male delivered at 1414, weight of 8 pound 7 ounces. 33-year-old 2 para 1-0-0-1 at 39 0/7 weeks that presents to labor and delivery for induction of labor. Patient has been receiving routine care which has been essentially uncomplicated. On NST a arrhythmia was appreciated, therefore induction of labor was scheduled at 39 weeks. heart tones have been normal with an occasional skipped beat appreciated. Patient was admitted and Pitocin induction of labor was begun. Patient underwent amniotomy and clear fluid was obtained. Patient progressed through labor eventually requesting nitrous for pain control. Patient made slow progress toward complete. Once completely dilated patient began pushing and had a normal spontaneous vaginal delivery of a viable male infant at 1414, weight of 8 pounds 7 ounces. After 2-minute delay the umbilical cord was doubly clamped and cut the placenta was delivered spontaneously intact with a three-vessel cord being noted. Spontaneous cry was noted at . On inspection of the patient's vaginal vault a second-degree midline laceration was appreciated injected with lidocaine and repaired in usual fashion with 3-0 Rapide. Uterus is noted to be firm below the umbilicus the bladder was drained for approximately 100 cc of clear yellow urine. All counts were to be correct x 2 at the end of the delivery. Patient and infant tolerated delivery well and are resting comfortably.
--- NOTE | 2023-08-30 14:33 | P.HPOB ---
History of Present Illness H&P Date: 08/30/23 Chief Complaint: IUP at 39 1/7 weeks This is a 33-year-old 2 para 1 at 39-1/7 weeks that presents to labor and delivery for induction of labor. Patient has been receiving routine care which has been essentially uncomplicated. Patient notes good movement states she did contract through the weekend denies loss of fluid or vaginal bleeding. Patient had an NST throughout the which did reveal a arrhythmia, skipped beats. Patient elected induction of labor at 39 weeks secondary to arrhythmia. On blood work this patient is about type of O-, rubella status immune, hepatitis B surface and negative, HIV negative, RPR is nonreactive, grew beta strep culture is positive. Review of Systems Constitutional: Denies chills, Denies fatigue, Denies fever Ears, nose, mouth and throat: Denies headache Cardiovascular: Reports leg edema Respiratory: Denies dyspnea Gastrointestinal: Denies constipation, Denies diarrhea, Denies nausea, Denies vomiting Genitourinary: Reports Past Medical History Past Medical History: No Reported History Additional Past Medical History / Comment(s): obesity History of Any Multi-Drug Resistant Organisms: None Reported Past Surgical History: No Surgical Hx Reported, Bariatric Surgery Additional Past Surgical History / Comment(s): Gastric Sleeve 09/18/18 Past Anesthesia/Blood Transfusion Reactions: No Reported Reaction, Family History of Problems w/ Anesthesia, Motion Sickness Additional Past Anesthesia/Blood Transfusion Reaction / Comment(s): entire family experiences ponv Past Psychological History: Anxiety, Depression Smoking Status: Never smoker Past Alcohol Use History: None Reported Past Drug Use History: None Reported - Past Family History Mother Family Medical History: No Reported History Medications and Allergies Home Medications Medication Instructions Recorded Confirmed Type Ferrous Sulfate [Iron] 325 mg PO DAILY 12/21/18 08/30/23 History Aspirin 81 mg PO DAILY 10/10/20 08/30/23 History Pnv No.95/Ferrous Fum/Folic AC 1 tab PO DAILY 10/10/20 08/30/23 History [ Multivitamin Tablet] Famotidine [Pepcid] 10 mg PO DAILY 08/24/23 08/30/23 History Allergies Allergy/AdvReac Type Severity Reaction Status Date / Time No Known Allergies Allergy Verified 08/30/23 06:13 Exam Osteopathic Statement: *. No significant issues noted on an osteopathic structural exam other than those noted in the History and Physical/Consult. Vital Signs Temp Pulse Resp BP Pulse Ox 08/30/23 06:12 97.2 F L 76 16 136/78 98 Intake and Output 08/29/23 08/30/23 08/30/23 22:59 06:59 14:59 Other: Weight 145.15 kg Targeted physical exam is performed this date General is a well-nourished well- developed female in no acute distress, breathing is nonlabored, heart has a regular rhythm, abdomen is gravid and appropriate for gestational age, on cervical exam she is 3/50/-2 station amniotomy is performed and clear fluid was obtained. heart tones noted to be category 1 and she is earlene every 3 minutes. Results Result Diagrams: 08/30/23 06:30 Abnormal Lab Results - Last 24 Hours (Table) 08/30/23 Range/Units 06:30 Hgb 10.1 L (11.4-16.0) gm/dL Hct 31.6 L (34.0-46.0) % Assessment and Plan (1) Term Current Visit: Yes Status: Acute Code(s): Z34.90 - ENCNTR FOR SUPRVSN OF NORMAL , UNSP, UNSP TRIMESTER SNOMED Code(s): 97961224 Plan: 33-year-old G2, P1 at 39-1/7 weeks presents for elective induction of labor. Patient is admitted and Pitocin induction of labor has begun. Options for analgesia are discussed including Nubain, nitrous, epidural. Patient will consider.
[2023-08-30] MEDS: IBUPROFEN 600 MG TAB PO SCH (15:01)
[2023-08-30] MEDS: LIDOCAINE 0.5% (PF) 5 MG/ML (50 ML SDV) SQ PRN (15:12)
[2023-08-31] MEDS: SENNOSIDES-DOCUSATE SODIUM 1 EACH TAB PO SCH (01:51)
[2023-08-31 07:27] LABS: Basophils % (A) 0 %; Eosinophils # (A) 0.1 k/uL (0-0.7); Eosinophils % (A) 1 %; HCT 32.5 % (34.0-46.0); HGB 10.2 gm/dL (11.4-16.0); Hypochromasia Slight; Lymphocytes # (A) 3.1 k/uL (1.0-4.8); Lymphocytes % (A) 20 %; MCH 25.7 pg (25.0-35.0); MCHC 31.5 g/dL (31.0-37.0); MCV 81.8 fL (80.0-100.0); Mean Platelet Volume 8.5; Monocytes # (A) 0.8 k/uL (0-1.0); Monocytes % (A) 5 %; Neutrophils # (A) 11.4 k/uL (1.3-7.7); Neutrophils % (A) 73 %; Platelet Count 327 k/uL (150-450); RBC 3.97 m/uL (3.80-5.40); WBC 15.6 k/uL (3.8-10.6)
[2023-08-31] MEDS: PRENATAL VIT-IRON-FOLIC ACID 1 EACH TABLET PO SCH (08:02)
[2023-08-31 08:57] VITALS: BP 135/77; PULSE 80; RESP 16; TEMP 98.7
--- NOTE | 2023-08-31 12:50 | P.DS ---
Providers Date of admission: 08/30/23 06:05 Expected date of discharge: 08/31/23 Attending physician: Elena Chapa Primary care physician: Stated None - Discharge Diagnosis(es) (1) Term Current Visit: Yes Status: Acute (2) Status post vaginal delivery Current Visit: Yes Status: Acute (3) Obstetrical laceration, second degree Current Visit: Yes Status: Acute Hospital Course: This is a 33-year-old 2 now para 2 that presented to labor and delivery for induction of labor on 08/29. Patient had been receiving routine care. On NST in triage a arrhythmia was appreciated. Patient was counseled on results. It did resolve toward the end of the on continued monitoring. Patient did elect induction of labor at 39 weeks. Patient was admitted and Pitocin induction of labor was begun. Patient underwent amniotomy and clear fluid was obtained. Patient progressed through labor using nitrous for analgesia. Patient progressed to complete began pushing and had a normal spontaneous vaginal delivery of a viable male at 1414, weight of 8 pounds 7 ounces. Patient did sustain a second-degree midline laceration which was repaired in the usual fashion with 3-0 Rapide. Patient's course has been uneventful. In this day #1 she is ambulating and voiding without difficulty. She is tolerating a regular diet without nausea or vomiting. States her pain is well-controlled. She denies concerns. She would like discharge home later today. Patient Condition at Discharge: Good Plan - Discharge Summary New Discharge Prescriptions: No Action Ferrous Sulfate [Iron] 325 mg PO DAILY Pnv No.95/Ferrous Fum/Folic AC [ Multivitamin Tablet] 1 tab PO DAILY Aspirin 81 mg PO DAILY Famotidine [Pepcid] 10 mg PO DAILY Discharge Medication List Ferrous Sulfate [Iron] 325 mg PO DAILY 12/21/18 [History] Aspirin 81 mg PO DAILY 10/10/20 [History] Pnv No.95/Ferrous Fum/Folic AC [ Multivitamin Tablet] 1 tab PO DAILY 10/10/20 [History] Famotidine [Pepcid] 10 mg PO DAILY 08/24/23 [History] Follow up Appointment(s)/Referral(s): Elena Chapa DO [Doctor of Osteopathic Medicine] - 10/11/23 1:00 pm Patient Instructions/Handouts: Vaginal Delivery (GEN), Vaginal Delivery (DC) Activity/Diet/Wound Care/Special Instructions: No intercourse, tub baths. No heavy lifting greater than a gallon of milk. No driving for two weeks. Call with any fever, shakes or chills, with any pain not alleviated by over the counter meds, or with any quesions or concerns. [id number] ibuprofen 600 mg as needed for pain. Discharge Disposition: HOME SELF-CARE
== END 2023-08-31 16:00 | disposition home or self-care (01) | DRG 807 ==
LOC: 4FBP 06:05
PROVIDERS: ADMIT Obstetrics & Gynecology Obstetrics; ATTEND Obstetrics & Gynecology Obstetrics
PROC: 10E0XZZ Delivery of Products of Conception, External Approach (ICD-10-PCS; principal; 2023-08-30)
PROC: 3E033VJ Introduction of Other Hormone into Peripheral Vein, Percutaneous Approach (ICD-10-PCS; principal; 2023-08-30)
PROC: 10907ZC Drainage of Amniotic Fluid, Therapeutic from Products of Conception, Via Natural or Artificial Opening (ICD-10-PCS; principal; 2023-08-30)
PROC: 0KQM0ZZ Repair Perineum Muscle, Open Approach (ICD-10-PCS; principal; 2023-08-30)
DX: O76 Abnormality in fetal heart rate and rhythm complicating labor and delivery (principal); O99.824 Streptococcus B carrier state complicating childbirth; O70.1 Second degree perineal laceration during delivery; O99.214 Obesity complicating childbirth; E66.9 Obesity, unspecified; O99.344 Other mental disorders complicating childbirth; F41.9 Anxiety disorder, unspecified; F32.A Depression, unspecified; Z98.84 Bariatric surgery status; Z79.82 Long term (current) use of aspirin; Z79.899 Other long term (current) drug therapy; Z28.310 Unvaccinated for COVID-19; Z3A.39 39 weeks gestation of pregnancy; Z37.0 Single live birth
CPT/HCPCS: 85025; 86850; 86900; 86901